=== PATIENT | male | born 1945 | race Caucasian/White ===

== ENCOUNTER 2017-11-13 08:37 | Day surgery (SDC) | payer MEDICARE ==
[~2017-11-13] VITALS: Ht 177.8 cm; Wt 57.3 kg
[~2017-11-13 08:37] MED LIST: ALBU.083IS IH; ALBU8HFA2 INH; AMARYL; ASPI81EC PO; BUDE6HFA; CEPH250A; CEPH500; CEPH500 PO; CIPRO500 MG PO; DILT120 PO; FINA5 PO; FLUSAL1005 INH; GABA100 PO; GLIP5 PO; GLUCOPHAGE; GUAI600T33 PO; Glucophage1000 MG PO; HYDACE5; HYDACE5 PO; METF500 PO; METO50ER PO; NAPR550 PO; PRAV20 PO; PRAVASTATIN SOD10 MG PO; SILD50TA PO; TIOT18 IH; ZESTORETIC 20-121 EA; [UNRECOGNIZED DRUG - REMARK]
== END 2017-11-13 10:41 | disposition home or self-care (01) ==
LOC: ORSCSDS 08:37
PROVIDERS: Ophthalmology
PROC: 08RK3JZ Replacement of Left Lens with Synthetic Substitute, Percutaneous Approach (ICD-10-PCS; principal; 2017-11-13 10:00)
DX: H25.12 Age-related nuclear cataract, left eye (principal); E11.36 Type 2 diabetes mellitus with diabetic cataract; J44.9 Chronic obstructive pulmonary disease, unspecified; I25.10 Atherosclerotic heart disease of native coronary artery without angina pectoris; Z79.82 Long term (current) use of aspirin; Z79.84 Long term (current) use of oral hypoglycemic drugs; Z79.899 Other long term (current) drug therapy; Z87.891 Personal history of nicotine dependence
CPT/HCPCS: 82947; J2250; J3010; J3301; J7040; V2632

== ENCOUNTER 2018-06-18 10:55 | Emergency (ER) | payer MEDICARE ==
[~2018-06-18] VITALS: Ht 177.8 cm; Wt 65.8 kg
[2018-06-18] MEDS ORDERED: Sm Double Ant28.4 GM TOP (11:40)
== END 2018-06-18 12:03 | disposition home or self-care (01) ==
LOC: ER 10:55
DX: T20.20XA Burn of second degree of head, face, and neck, unspecified site, initial encounter (principal); T31.0 Burns involving less than 10% of body surface; X08.8XXA Exposure to other specified smoke, fire and flames, initial encounter; Z79.899 Other long term (current) drug therapy; Z79.82 Long term (current) use of aspirin; Z79.84 Long term (current) use of oral hypoglycemic drugs; E11.9 Type 2 diabetes mellitus without complications; J44.9 Chronic obstructive pulmonary disease, unspecified; I10 Essential (primary) hypertension; F17.210 Nicotine dependence, cigarettes, uncomplicated; Z99.81 Dependence on supplemental oxygen

== ENCOUNTER 2018-07-29 13:33 | Emergency (ER) | payer MEDICARE ==
[~2018-07-29] VITALS: Ht 177.8 cm; Wt 57.6 kg
[~2018-07-29 13:33] MED LIST changes: +Sm Double Ant28.4 GM TOP; -ZESTORETIC 20-121 EA; +ZESTORETIC 20-121 EA PO
[2018-07-29 13:57] LABS: BASOPHILS ABSOLUTE AUTO 0.01 K/mm3 (0.00-0.23); BASOPHILS PERCENT AUTO 0 % (0-2); EOSINOPHILS PERCENT AUTO 0 % (0-6); Hematocrit 39.1 % (37.0-53.0); Hemoglobin 10.8 g/dL (13.5-17.5); IMMATURE GRAN ABSOLUTE AUTO 0.02 K/mm3 (0.00-0.10); IMMATURE GRAN PERCENT AUTO 0 % (0-1); LYMPHOCYTES PERCENT AUTO 7 % (21-46); MONOCYTES ABSOLUTE AUTO 0.73 K/mm3 (0.16-1.47); MONOCYTES PERCENT AUTO 10 % (4-13); Mean Corpuscular HGB 27.9 pg (26.0-34.0); Mean Corpuscular HGB Conc 27.6 g/dL (31.5-36.5); Mean Corpuscular Volume 101 fL (80-100); Mean Platelet Volume 10.2 fL (9.1-12.4); NEUTROPHILS ABSOLUTE AUTO 6.11 K/mm3 (1.96-9.15); NEUTROPHILS PERCENT AUTO 83 % (41-73); Platelet Count 211 K/mm3 (150-400); RDW Standard Deviation 51.8 fL (35.1-46.3); Red Blood Cell Count 3.87 M/mm3 (4.30-5.90); White Blood Cell Count 7.37 K/mm3 (4.00-11.30)
[2018-07-29] MEDS ORDERED: Ventolin5 MG/1 ML INH (14:10)
[2018-07-29] MEDS ORDERED: Mucinex600 MG PO (14:11)
[2018-07-29] MEDS ORDERED: GABA100 PO (14:12)
[2018-07-29] MEDS ORDERED: SILD50TA PO (14:12)
[2018-07-29 14:21] LABS: Albumin, Blood 3.6 g/dL (3.4-5.0); Albumin/Globulin Ratio 0.9 (0.8-1.8); Bilirubin, Total 0.4 mg/dL (0.1-1.0); Bun/Creatinine Ratio 28.7 (12.0-20.0); Creatinine, Blood 1.57 mg/dL (0.60-1.20); Globulin, Blood 3.9 g/dL (2.2-4.0); Potassium, Blood 4.6 mmol/L (3.5-5.5); Total Protein, Blood 7.5 g/dL (6.4-8.2); Troponin I 0.019 ng/mL (0.000-0.040)
[2018-07-30] MEDS ORDERED: POTA8 PO (17:32)
[2018-07-30] MEDS ORDERED: FURO20 PO (17:32)
== END 2018-07-29 15:24 | disposition home or self-care (01) ==
LOC: ER 13:33
PROVIDERS: Emergency Medicine
DX: J43.9 Emphysema, unspecified (principal); R09.02 Hypoxemia; E11.9 Type 2 diabetes mellitus without complications; I10 Essential (primary) hypertension; I25.10 Atherosclerotic heart disease of native coronary artery without angina pectoris; G47.33 Obstructive sleep apnea (adult) (pediatric); F17.210 Nicotine dependence, cigarettes, uncomplicated
CPT/HCPCS: 71046; 80053; 84484; 85025; 93005; 93010; 94640; 99284-25

== ENCOUNTER 2018-07-30 07:23 | Inpatient (IN) | payer MEDICARE ==
[~2018-07-30] VITALS: Ht 172.7 cm; Wt 54.2 kg
[~2018-07-30 07:23] MED LIST changes: +Mucinex600 MG PO; +Ventolin5 MG/1 ML INH
[2018-07-30 07:52] LABS: BASOPHILS ABSOLUTE AUTO 0.03 K/mm3 (0.00-0.23); BASOPHILS PERCENT AUTO 0 % (0-2); EOSINOPHILS PERCENT AUTO 0 % (0-6); Hematocrit 41.5 % (37.0-53.0); Hemoglobin 11.3 g/dL (13.5-17.5); IMMATURE GRAN ABSOLUTE AUTO 0.07 K/mm3 (0.00-0.10); IMMATURE GRAN PERCENT AUTO 1 % (0-1); LYMPHOCYTES ABSOLUTE AUTO 0.86 K/mm3 (0.84-5.20); LYMPHOCYTES PERCENT AUTO 9 % (21-46); MONOCYTES PERCENT AUTO 11 % (4-13); Mean Corpuscular HGB 27.4 pg (26.0-34.0); Mean Corpuscular HGB Conc 27.2 g/dL (31.5-36.5); Mean Corpuscular Volume 101 fL (80-100); Mean Platelet Volume 10.6 fL (9.1-12.4); NEUTROPHILS ABSOLUTE AUTO 7.32 K/mm3 (1.96-9.15); NEUTROPHILS PERCENT AUTO 79 % (41-73); NRBC ABSOLUTE 0.02 K/mm3 (0.00-0.02); NRBC Auto 0.2 /100 WBC (0.0-0.2); Platelet Count 191 K/mm3 (150-400); RDW Standard Deviation 51.8 fL (35.1-46.3); Red Blood Cell Count 4.12 M/mm3 (4.30-5.90); White Blood Cell Count 9.28 K/mm3 (4.00-11.30)
[2018-07-30 07:54] LABS: PO2 Arterial 78.8 mmHg (80-100)
[2018-07-30 07:55] LABS: pH Blood Arterial 7.13 (7.35-7.45)
[2018-07-30 07:57] LABS: PCO2 Arterial > 106 mmHg (35-45)
[2018-07-30 08:13] LABS: Albumin, Blood 3.6 g/dL (3.4-5.0); Albumin/Globulin Ratio 0.9 (0.8-1.8); Bilirubin, Total 0.3 mg/dL (0.1-1.0); Bun/Creatinine Ratio 29.1 (12.0-20.0); Calcium, Blood 8.7 mg/dL (8.5-10.1); Creatinine, Blood 1.79 mg/dL (0.60-1.20); Globulin, Blood 4.1 g/dL (2.2-4.0); Potassium, Blood 5.3 mmol/L (3.5-5.5); Total Protein, Blood 7.7 g/dL (6.4-8.2); Troponin I 0.126 ng/mL (0.000-0.040)
[2018-07-30 09:00] LABS: Base Excess Venous 13.4 mmol/L; Bicarbonate Venous 33.2 mmol/L (24.0-30.0); PO2 Venous 46.9 mmHg (38-42); pH Blood Venous 7.19 (7.34-7.37)
[2018-07-30 11:08] LABS: PO2 Arterial 83.5 mmHg (80-100); pH Blood Arterial 7.18 (7.35-7.45)
[2018-07-30 11:09] LABS: PCO2 Arterial > 106 mmHg (35-45)
--- NOTE | 2018-07-30 12:30 | NUR ---
ASSUMED CARE: PT BROUGHT FROM ED INTUBATED. AC 14/400/5/30%. AT BEDSIDE. PT WAS NOT SEDATED INITAILLY DUE TO HYPOTENSION. DR RAYMOND AWARE AND BOLUS OF NS ADMINISTERED. BP BEGAN TO NORMALIZE SO PROPOFOL STARTED INITIALLY AT 20MCG/MG/MIN. FAMILY AT BEDSIDE AND PT BECAME AGITATED, MOUTHED TO FAMILY HE WAS NOT COMFORTABLE. SEDATION INCREASED TO 25 MCG/KG/MIN. WITH THIS, PT APPEARS TO BE ASLEEP, NO LONGER SQUEEZING HANDS OR COMMUNICATING WITH FAMILY BUT APPEARS COMFORTABLE. DR RAYMOND AT BEDSIDE EXPLAINING PROGNOSIS TO PT'S . STATES THAT HE WANTS TO GIVE INTUBATION A FEW DAYS TO DETERMINE IF PT CAN BEGIN TO IMPROVE. [facility] PERFORMING ECHO. NO FURTHER NEEDS OR CONCERNS AT THIS TIME.
[2018-07-30 13:04] LABS: pH Blood Arterial 7.26 (7.35-7.45)
[2018-07-30 13:05] LABS: PCO2 Arterial 73.9 mmHg (35-45)
--- NOTE | 2018-07-30 13:52 | NUR ---
Echocardiogram completed.
--- NOTE | 2018-07-30 14:11 | NUR ---
Present with spouse, Lurdes, when pt brought to ICU. Lurdes was tearful and very afraid of "doing the wrong thing." She admits that Marisol has told her that he did not want heroic medical measures, but in the moment, she could not allow him to "go." Marisol has adult sons in [place] and [place]. Lurdes feels that if a life or decision needs to be made, it should be with Marisol's sons input/agreement. I stayed with Lurdes until things calmed down and Marisol was stabilized. They are non-adventism. But Lurdes responded well to gentle eligibility counselor and comfort. I will remain available.
--- NOTE | 2018-07-30 17:20 | NUR ---
This student nurse has permission to access patient's information.
[2018-07-30] MEDS ORDERED: FURO20 PO (17:32)
[2018-07-30] MEDS ORDERED: POTA8 PO (17:32)
--- NOTE | 2018-07-30 19:18 | NUR ---
SHIFT SUMMARY: PT REMAINS INTUBATED. SETTINGS AC 14/400/40/5. PROPOFOL AT 25MCG/KG/MIN. PUTTING OUT THICK, FORBES/YELLOW SECRETIONS. OG IN PLACE PUTTING OUT GREEN SECRETIONS. FIGUEROA IN PLACE WITH DARK YELLOW URINE. RESTRAINTS BILATERAL WRISTS. AT BEDSIDE. NO ACUTE NEEDS OR CONCERNS AT THIS TIME. PLAN IS TO KEEP INTUBATED FOR A FEW DAYS TO DETERMINE HOW PT PROGRESSES.
--- NOTE | 2018-07-30 20:00 | NUR ---
ASSUMED CARE OF PT AT 1915. REPORT RECEIVED. PT PRESENTS IN BED. VENTED - SETTINGS CHECKED AND VERIFIED. DRIPS ALSO VERIFIED. AT BEDSIDE. VERY ATTENTIVE TO PT'S NEEDS. PT IN NO APPARENT DISTRESS AT THIS TIME. WILL REVIEW CHART AND PLAN OF CARE FOR THIS PT.
--- NOTE | 2018-07-30 23:00 | NUR ---
FULL BEDBATH DONE FOR PT. HAVE INCREASED PROPOFOL TO 35 MCG'S FOR VENT TOLERANCE. PT IS ABLE TO OPEN EYES AND NOD HEAD 'YES' OR 'NO' TO QUESTIONS. DENIES GENERAL PAIN BUT DOES INDICATE THAT HE IS NOT TOLERATING THE ETT SO WITH INCREASE IN PROPOFOL MUCH BETTER TOLERANCE NOTED. BLOOD PRESSURES REMAIN WNL. WILL CONTINUE TO MONITOR PT.
--- NOTE | 2018-07-31 02:08 | NUR ---
PT CONTINUES ON VENT SETTINGS WHEREAS IS ABLE TO MAINTAIN SATURATIONS > 90 PERCENT. PT IN NO APPARENT DISTRESS. CONTINUING WITH 35 MCG'S PROPOFOL PER KG/ MIN. ROOMS IN. WILL CONTINUE TO MONITOR PT.
[2018-07-31 04:02] LABS: Hematocrit 29.4 % (37.0-53.0); Hemoglobin 8.7 g/dL (13.5-17.5); Mean Corpuscular HGB Conc 29.6 g/dL (31.5-36.5); Mean Platelet Volume 11.1 fL (9.1-12.4); NRBC ABSOLUTE 0.02 K/mm3 (0.00-0.02); NRBC Auto 0.3 /100 WBC (0.0-0.2); Platelet Count 168 K/mm3 (150-400); RDW Coefficient Variation 14.2 % (11.7-14.2); RDW Standard Deviation 48.7 fL (35.1-46.3); Red Blood Cell Count 3.11 M/mm3 (4.30-5.90); White Blood Cell Count 6.34 K/mm3 (4.00-11.30)
[2018-07-31 04:04] LABS: Mean Corpuscular Volume 95 fL (80-100)
[2018-07-31 04:22] LABS: Bun/Creatinine Ratio 30.1 (12.0-20.0); Calcium, Blood 8.2 mg/dL (8.5-10.1); Creatinine, Blood 1.76 mg/dL (0.60-1.20); Potassium, Blood 4.6 mmol/L (3.5-5.5); Troponin I 0.235 ng/mL (0.000-0.040)
[2018-07-31 04:50] LABS: BAND PERCENT MAN 18 % (0-8); BASOPHILS PERCENT MAN 0 % (0-2); EOSINOPHILS PERCENT MAN 0 % (0-6); LYMPHOCYTES ABSOLUTE MAN 0.57 K/mm3 (0.84-5.20); LYMPHOCYTES PERCENT MAN 9 % (21-46); MONOCYTES ABSOLUTE MAN 0.12 K/mm3 (0.16-1.47); MONOCYTES PERCENT MAN 2 % (4-13); NEUTROPHILS ABSOLUTE MAN 5.64 K/mm3 (1.96-9.15); SEG NEUTROPHILS PERCENT MAN 71 % (41-73); TOTAL CELLS COUNTED 100
--- NOTE | 2018-07-31 06:24 | NUR ---
PT CONTINUES TO TOLERATE VENT WELL WITH PROPOFOL AT 35 MCG/KG/MIN. HAS MAINTAINED > 90 PERCENT SATURATIONS WITH CURRENT VENT SETTINGS. WEAN TRIAL THIS AM REVEALS PT TAKING TIDAL VOLUMES OF 1000 ML AND RESPIRATORY RATES 5-6. PT WAS PLACED BACK TO AC SETTINGS SECONDARY TO THIS. PT CURRENTLY RESTING IN NO DISTRESS. WILL CONTINUE TO MONITOR PT, AND WILL REPORT OFF TO ONCOMING RN.
--- NOTE | 2018-07-31 09:55 | NUR ---
PT AWAKE ON 25MCG PROPOFOL. [facility]. PT DENIES C/O PAIN. PT TEARFUL, NODS HEAD TO BEING FEARFUL W ANXIETY. PROPOFOL INCREASED TO 45MCG; PT REMAINED AWAKE AND FEARFUL. VERSED 2MG IVP GIVEN. AT BEDSIDE. LUNGS VERY DIMINISHED T/O.
[2018-07-31 09:56] LABS: Percent Saturation 4.2 % (20.0-50.0)
--- NOTE | 2018-07-31 09:58 | NUR ---
DR FU IN TO SEE PT AT 0830, LABS ORDERED AND DRAWN
--- NOTE | 2018-07-31 10:51 | NUR ---
PT AWAKE ON 45MCG PROPOFOL. DENIES C/O PAIN. TEARFUL, NODS HEAD YES TO WANTING TO BE MORE SEDATED HE IS FEARFUL AND ANXIOUS. DR SWEENEY GIVEN UPDATE.
--- NOTE | 2018-07-31 12:56 | NUR ---
PT GIVEN ATIVAN 2MG IVP FOR ANXIETY. PROPOFOL DECREASED TO 45MCG. DR SWEENEY IN EARLIER TO SEE PT AND SPOKE W PT'S BROTHER.
[2018-07-31 14:32] LABS: Adenovirus Not Detected (NOT DETECT); Bordetella pertussis Not Detected (NOT DETECT); Chlamydophila pneumoniae Not Detected (NOT DETECT); Coronavirus 229E Not Detected (NOT DETECT); Coronavirus HKU1 Not Detected (NOT DETECT); Coronavirus NL63 Not Detected (NOT DETECT); Coronavirus OC43 Not Detected (NOT DETECT); Human Metapneumovirus Not Detected (NOT DETECT); Human Rhinovirus/Enterovirus Not Detected (NOT DETECT); Influenza A Not Detected (NOT DETECT); Influenza A/2009-H1 Not Detected (NOT DETECT); Influenza A/H1 Not Detected (NOT DETECT); Influenza A/H3 Not Detected (NOT DETECT); Influenza B Not Detected (NOT DETECT); Mycoplasma pneumoniae Not Detected (NOT DETECT); Parainfluenza Virus 1 Not Detected (NOT DETECT); Parainfluenza Virus 2 Not Detected (NOT DETECT); Parainfluenza Virus 3 Detected (NOT DETECT); Parainfluenza Virus 4 Not Detected (NOT DETECT); Respiratory Syncytial Virus Not Detected (NOT DETECT)
--- NOTE | 2018-07-31 15:01 | NUR ---
TUBE FEEDING STARTED AT 25CC/HR (PIVOT 1.5). DR SWEENEY NOTIFIED OF POS PCR RESULTS.
--- NOTE | 2018-07-31 15:44 | NUR ---
PALIATIVE CARE IN TO SEE PT'S FAMILY.
--- NOTE | 2018-07-31 16:03 | NUR ---
Clinical Visit: Pt is sedated and on vent. Spoke to Johnna, nurse. She reports that just left for the day a little bit ago. Pt is expected to come off the vent when he is ready. Family at bedside are concerned about renal and liver function. Apparently, the pt's sister in April of liver disease and they lost both of their parents to renal disease. Reviewed this with them. There are no restrictions on information and Johnna feels comfortable with me sharing that liver tests are normal and renal is slightly abnormal but expected to continue recovering as his urine output is really good today. This was relayed to the family, who expressed their relief. Will remain available.
--- NOTE | 2018-07-31 16:51 | NUR ---
Spriritual Care visit: Met with spouse, Lurdes, at bedside. She reports relief that "he is much more calm today." I am not sure she is aware that Marisol is now sedated. Regardless, Lurdes responded well to encouragement and affirmation of love. [employer] Special[employer] Supervisor services will remain available.
--- NOTE | 2018-07-31 19:22 | NUR ---
[place] of Care: Patient intubated, sedated, responds to painful stimuli, appears calm/comfortable when not stimulated. Propofol gtt at 45mcg/kg/min, NS infusing at 100ml/hr. Ventilator to AC 14/400/40/5, O2-94%, VSS. Mcclelland cath patent and intact, draining clear yellow urine. Peripheral IV's x3 patent and intact. TF per OG tube is Pivot 1.5c at 25ml/hr, will assess residual at approx 2000hr and advance to goal rate of 30ml/hr if no s/s of GI intolerance, 30ml H2O flush q4hr. Plan for spontaneous breathing trial in the morning. Will continue to monitor for pain, safety, comfort.
--- NOTE | 2018-07-31 20:18 | NUR ---
Tube Feed: TF residuals of 10ml at this time. TF rate increased from 25ml/hr to goal rate of 30ml/hr at this time. Will continue to assess residual q4hr.
[2018-08-01 03:36] LABS: Hematocrit 28.6 % (37.0-53.0); Hemoglobin 8.4 g/dL (13.5-17.5); Mean Corpuscular HGB 27.5 pg (26.0-34.0); Mean Corpuscular HGB Conc 29.4 g/dL (31.5-36.5); Mean Corpuscular Volume 94 fL (80-100); NRBC ABSOLUTE 0.02 K/mm3 (0.00-0.02); NRBC Auto 0.4 /100 WBC (0.0-0.2); Platelet Count 192 K/mm3 (150-400); RDW Coefficient Variation 14.4 % (11.7-14.2); RDW Standard Deviation 48.7 fL (35.1-46.3); Red Blood Cell Count 3.06 M/mm3 (4.30-5.90); White Blood Cell Count 5.21 K/mm3 (4.00-11.30)
[2018-08-01 03:59] LABS: Albumin, Blood 2.8 g/dL (3.4-5.0); Anion Gap 5 mmol/L (6-16); Blood Urea Nitrogen 55 mg/dL (8-24); CO2, Blood 33 mmol/L (21-32); Calcium, Blood 8.1 mg/dL (8.5-10.1); Chloride, Blood 105 mmol/L (98-108); Creatinine, Blood 1.62 mg/dL (0.60-1.20); Glomerular Filtration Rate 44 (60-); Glucose, Blood 224 mg/dL (70-99); Magnesium, Blood 2.1 mg/dL (1.6-2.4); Phosphorus, Blood 3.6 mg/dL (2.5-4.9); Potassium, Blood 3.7 mmol/L (3.5-5.5); Sodium, Blood 143 mmol/L (136-145)
[2018-08-01 04:19] LABS: BAND PERCENT MAN 17 % (0-8); BASOPHILS PERCENT MAN 0 % (0-2); EOSINOPHILS PERCENT MAN 0 % (0-6); LYMPHOCYTES ABSOLUTE MAN 0.31 K/mm3 (0.84-5.20); LYMPHOCYTES PERCENT MAN 6 % (21-46); MONOCYTES PERCENT MAN 2 % (4-13); NEUTROPHILS ABSOLUTE MAN 4.79 K/mm3 (1.96-9.15); SEG NEUTROPHILS PERCENT MAN 75 % (41-73); TOTAL CELLS COUNTED 100
[2018-08-01 05:26] LABS: PCO2 Arterial 64.8 mmHg (35-45); PO2 Arterial 81.7 mmHg (80-100); pH Blood Arterial 7.32 (7.35-7.45)
--- NOTE | 2018-08-01 06:30 | NUR ---
Shift Summary: Ventilator remains on AC-14/400/40/5 throughout shift. O2-91-96%, VSS. Tolerated spontaneous breathing trail without difficult, see RT documentation. Propofol gtt remained at 45mcg/kg/min, x2 doses of prn ativan given with good effect noted. TF increased to goal rate of 30ml/hr this shift, residuals 5-30ml, no s/s of GI intolerance. Peripheral IV's x3 remain patent and intact. Mcclelland cath patent and intact, draining clear yellow urine. Will continue to monitor until report to day shift RN.
--- NOTE | 2018-08-01 07:30 | NUR ---
Recieved report from [place]. Patient laying in bed with HOB at 30 degrees. He is intubated and sedated. He has 7.5 ET and is 24/25 at lips. His vent settings are AC 14, TV 400, FiO2 40% and PEEP 5.0 at 90% sats. He has OG in place with Pivot 1.5 infusing at 30ml/hr with 30ml water flush Q4 and has <30 ml residuals. He has 16Fr Temp king draining clear yellow urine in adequate amounts. He has 20 ga LFA dressing intact and site WNL infusing Propofol at 40 Mcg/kg/min. He has 20ga RW IV dressing intact and site WNL's and is flushed and SL. His third IV is 20gan upper RFA and dressing intact and site WNL's and is infusing NS at 100ml/hr. He is in bilateral soft wrist restraints and they were removed circulation and skin was checked and re-applied. He has bilateral SCD's in place.
--- NOTE | 2018-08-01 09:30 | NUR ---
Repositioned patient and did am care. meds pass through OG. No vent setting changes or drip changes. Family at bedside. Dr Dye has been by no new orders.
--- NOTE | 2018-08-01 11:36 | NUR ---
Patient extubated at 1130, Propofol tuned off at 1054 prior to ecxtubation and TF turned off. He is currently on 4L O2 via NC. Patient tolerating well. Will be placeing BIPAP in room incase does'nt tolerate. Dr Landon talked with son.
--- NOTE | 2018-08-01 13:29 | NUR ---
Patient placed on BIPAP at 1250 12/6 and is resting. He is very weak and had episode of sats dropping low 80's and has very poor cough. He has lots of family in room and they are leaving him to give him a break. He is currently in the mid to high 905"s on BIPAP. Restraints didcontinued just after 1130.
--- NOTE | 2018-08-01 15:30 | NUR ---
Patient taken off BIPAp and was able to answer questions and placed on 4L O2 via NC and sats mid to low 90%'s. VSS. Had him move extremities and was able to lift arms above head. Use is able to speak in single answeres but yet sttill looks very weak. Called ER and patient advocate about family asking about missing teeth he had in ER before on bed prior to coming to ICU.
--- NOTE | 2018-08-01 18:41 | NUR ---
Patient lightly resting in bed with 4L O2 awakens to verbal stimuli. He wears O2 in mourth as he is a mouth breather. Talked with Rt about placing back on BIPAP 03/06 soon to rest. All family has gone home. He remains very week.
--- NOTE | 2018-08-01 20:00 | NUR ---
ASSUMED CARE OF PT AT 1915. REPORT RECEIVED. PT PRESENTS IN BED. ALERT AND MOSTLY ORIENTED. ON 4 L/M O2 PER NASAL CANNULA. DISCUSSED WITH PT PLAN FOR THE NIGHT IS TO HAVE HIM WEAR BIPAP. PT ACKNOWLEDGES THIS. PT HAS GARBLED SPEECH PATTERN. IS ABLE TO MAKE HIMSELF UNDERSTOOD WITH SOME EFFORT. IN NO APPARENT DISTRESS. NO COMPLAINTS OF PAIN. WILL REVIEW CHART AND PLAN OF CARE FOR THIS PT.
--- NOTE | 2018-08-01 23:00 | NUR ---
PT HAS BEEN FORGETFUL WHERE HE IS, AND HAS PULLED AT HIS BIPAP MASK. NEEDS TO BE REORIENTED. HAS NO COMPLAINTS OF PAIN. MAINTAINS > 90 PERCENT SATURATIONS WHILE ON BIPAP. HAS TOLERATED Q 2 HOUR TURNS IN BED. WILL CONTINUE TO MONITOR.
--- NOTE | 2018-08-02 03:00 | NUR ---
PT'S COMES IN TO SEE PATIENT AND HAS LEFT FOR THE NIGHT. ALLOWED PT OFF BIPAP MASK AND ON OXYGEN AT 4 L/M PER NASAL CANNULA. PT AGAIN IS ABLE TO MAINTAIN > 90 PERCENT SATURATIONS WHILE ON CANNULA. HAVE DONE Q 4 HOUR ORAL CARE, AND Q 2 HOUR TURNS. PT IN NO DISTRESS AT THIS TIME. DOES HAVE INCREASE IN RESPIRATORY RATE. WILL CONTINUE TO MONITOR PT.
[2018-08-02 03:15] LABS: Hematocrit 34.5 % (37.0-53.0); Hemoglobin 9.6 g/dL (13.5-17.5); Mean Corpuscular HGB 27.5 pg (26.0-34.0); Mean Corpuscular HGB Conc 27.8 g/dL (31.5-36.5); Mean Platelet Volume 11.2 fL (9.1-12.4); NRBC ABSOLUTE 0.02 K/mm3 (0.00-0.02); NRBC Auto 0.2 /100 WBC (0.0-0.2); Platelet Count 247 K/mm3 (150-400); RDW Coefficient Variation 14.5 % (11.7-14.2); RDW Standard Deviation 52.3 fL (35.1-46.3); Red Blood Cell Count 3.49 M/mm3 (4.30-5.90); White Blood Cell Count 9.68 K/mm3 (4.00-11.30)
[2018-08-02 03:21] LABS: Mean Corpuscular Volume 99 fL (80-100)
[2018-08-02 03:34] LABS: Bilirubin, Total 0.4 mg/dL (0.1-1.0); Bun/Creatinine Ratio 35.7 (12.0-20.0); Calcium, Blood 8.3 mg/dL (8.5-10.1); Creatinine, Blood 1.57 mg/dL (0.60-1.20); Phosphorus, Blood 5.3 mg/dL (2.5-4.9); Potassium, Blood 4.5 mmol/L (3.5-5.5)
[2018-08-02 03:46] LABS: BAND PERCENT MAN 3 % (0-8); BASOPHILS PERCENT MAN 0 % (0-2); EOSINOPHILS PERCENT MAN 0 % (0-6); LYMPHOCYTES ABSOLUTE MAN 0.09 K/mm3 (0.84-5.20); LYMPHOCYTES PERCENT MAN 1 % (21-46); MONOCYTES ABSOLUTE MAN 0.09 K/mm3 (0.16-1.47); MONOCYTES PERCENT MAN 1 % (4-13); NEUTROPHILS ABSOLUTE MAN 9.48 K/mm3 (1.96-9.15); SEG NEUTROPHILS PERCENT MAN 95 % (41-73); TOTAL CELLS COUNTED 100
[2018-08-02 05:28] LABS: PCO2 Arterial 57.6 mmHg (35-45); PO2 Arterial 63.1 mmHg (80-100); pH Blood Arterial 7.34 (7.35-7.45)
--- NOTE | 2018-08-02 06:30 | NUR ---
PT WAS NOTED TO BE TRYING TO BITE AT HIS SALINE LOCK. STATED HE WAS TRYING TO GET A DRINK OF WATER. REORIENTED PT. CLAIMS HE WAS IN [place] ON [facility]. INFORMED PT THAT HE WAS AT HOSPITAL HERE AT [facility]. PT CURRENTLY ON 4 L/M O2 PER NASAL CANNULA. PT HAS WORN BIPAP FOR MOST OF THE NIGHT. WILL CONTINUE TO MONITOR PT, AND WILL REPORT OFF TO ONCOMING RN.
--- NOTE | 2018-08-02 07:15 | NUR ---
RECEIVED REPORT FROM DENEEN CONTE, AND ASSUMED CARE OF PT.
--- NOTE | 2018-08-02 08:45 | NUR ---
DR. FU AT BEDSIDE FOR EVALUATION. NEW ORDERS PROVIDED.
--- NOTE | 2018-08-02 10:10 | NUR ---
PHYSICAL THERAPY AT BEDSIDE FOR EVALUATION AND TREATMENT.
--- NOTE | 2018-08-02 10:30 | NUR ---
MEDICATED WITH HYDRALAZINE IV FOR SBP'S IN THE 170'S AND 180'S. SBP CAME DOWN TO 140'S AND 150'S.
--- NOTE | 2018-08-02 14:04 | NUR ---
NURSING SUMMARY MILDLY CONFUSED, FOLLOWS COMMANDS, DENIES PAIN. LUNGS DIMINISHED THROUGHOUT WITH WHEEZING IN BASES, ON 4L O2 NC, SATS REMAINING 88-93%, USED BIPAP DURING THE NIGHT, DYSPNEIC ON EXERTION, DESATS TO 81% AND INCREASES WITH REST. NSR - ST - SINUS ARRHYTHMIA, HR 90'S - 110'S, INCREASES TO 130'S WITH EXERTION, HYPERTENSIVE, SBP 170'S AND 180'S, GAVE HYDRALAZINE 10 MG IVP, REDUCES SBP TO 150'S. ABDOMEN DISTENDED, SOFT, BS X 4 QUADS, STARTED CARDIAC DIET, POOR APPETITE, SWALLOW EVALUATION DONE, REQUIRES FEEDING ASSISTANCE. BLOOD SUGARS AC&HS, LUNCH CBG = 105, NO COVERAGE REQUIRED. DISCONTINUED FIGUEROA AT 1355, AWAITING FIRST VOID, URINAL AT BEDSIDE. SKIN DRY, FRAGILE, INTACT. 2 PERSON MAX ASSIST TO GET PT OUT OF BED INTO THE BEDSIDE CHAIR, ONCE IN CHAIR, TOLERATING WELL. RFA 20G, RAC 20G, AND LFA 20G IV SITES. DISCONTINUED THE NS AT 100 ML/HR AND ENCOURAGING INCREASED PO INTAKE. PT WORKED WITH PHYSICAL THERAPY TODAY.
--- NOTE | 2018-08-02 20:33 | NUR ---
ASSUMED CARE OF PT AT 1915. REPORT RECEIVED. PT PRESENTS SITTING UPRIGHT IN RECLINER CHAIR. PT DOES USE HIS CALL LIGHT TO ASK FOR ASSIST TO BEDSIDE COMMODE TO ATTEMPT TO URINATE. ONE PERSON MAX ASSIST TO STAND AND PIVOT TRANSFER TO COMMODE. PT DOES SHUFFLE FEET SOME AND NEEDS COACHING. PT VOIDS Q.S. AFTER THIS WITH SECOND PERSON ASSIST RETURNED PT TO BED. PT STILL BELIEVES THAT HE IS IN [place]. REORIENTED PT TO WHERE HE IS AT THIS TIME. PT HAS MOIST NONPRODUCTIVE COUGH. OXYGEN ON A 4 LITERS WHICH HAS SINCE BEEN BROUGHT DOWN TO 2.5 LITERS. PT MAINTAINS SATURATIONS > 90 PERCENT WITH THIS. FAMILY ARRIVES TO ROOM AND IS CURRENTLY VISITING WITH PT. THEY HAVE HAD QUESTIONS AND CONCERNS. ADDRESSED THOSE FOR FAMILY. WILL REVIEW CHART AND PLAN OF CARE FOR THIS PT.
--- NOTE | 2018-08-02 23:00 | NUR ---
HAVE NOTED PT'S MENTATION HAS BEEN IMPROVED THIS NIGHT THAN PREVIOUS EVENING THIS RN WAS IN CARE. HAVE PLACED PT TO BIPAP AND HE IS TOLERATING THIS WELL TO FAIR. PT DOES STATE THAT HE DOES PREFER TO WEAR ONLY NASAL CANNULA. DID DISCUSS WITH PT RATIONALE FOR WEARING BIPAP. PT ACKNOWLEDGES. WILL CONTINUE TO MONITOR PT.
--- NOTE | 2018-08-03 03:17 | NUR ---
PT CONTINUES TO BE COMPLIANT ABOUT WEARING BIPAP MASK. HAS MAINTAINED > 90 PERCENT SATURATIONS WITH CURRENT SETTINGS. PT HAS BEEN ABLE TO VOID QS. NEEDS SOME ASSIST WITH URINAL. PT VOICES NO COMPLAINTS AT THIS TIME. WILL CONTINUE TO MONITOR PT.
[2018-08-03 03:36] LABS: BASOPHILS ABSOLUTE AUTO 0.01 K/mm3 (0.00-0.23); BASOPHILS PERCENT AUTO 0 % (0-2); EOSINOPHILS PERCENT AUTO 0 % (0-6); Hemoglobin 10.3 g/dL (13.5-17.5); IMMATURE GRAN ABSOLUTE AUTO 0.07 K/mm3 (0.00-0.10); IMMATURE GRAN PERCENT AUTO 1 % (0-1); LYMPHOCYTES ABSOLUTE AUTO 0.39 K/mm3 (0.84-5.20); LYMPHOCYTES PERCENT AUTO 4 % (21-46); MONOCYTES ABSOLUTE AUTO 0.25 K/mm3 (0.16-1.47); MONOCYTES PERCENT AUTO 3 % (4-13); Mean Corpuscular HGB 27.5 pg (26.0-34.0); Mean Corpuscular HGB Conc 27.8 g/dL (31.5-36.5); Mean Corpuscular Volume 99 fL (80-100); Mean Platelet Volume 10.4 fL (9.1-12.4); NEUTROPHILS ABSOLUTE AUTO 8.62 K/mm3 (1.96-9.15); NEUTROPHILS PERCENT AUTO 92 % (41-73); NRBC ABSOLUTE 0.03 K/mm3 (0.00-0.02); NRBC Auto 0.3 /100 WBC (0.0-0.2); Platelet Count 263 K/mm3 (150-400); RDW Coefficient Variation 14.4 % (11.7-14.2); RDW Standard Deviation 51.7 fL (35.1-46.3); Red Blood Cell Count 3.75 M/mm3 (4.30-5.90); White Blood Cell Count 9.34 K/mm3 (4.00-11.30)
[2018-08-03 03:56] LABS: Anion Gap 7 mmol/L (6-16); Blood Urea Nitrogen 60 mg/dL (8-24); Bun/Creatinine Ratio 39.7 (12.0-20.0); CO2, Blood 31 mmol/L (21-32); Calcium, Blood 8.6 mg/dL (8.5-10.1); Chloride, Blood 107 mmol/L (98-108); Creatinine, Blood 1.51 mg/dL (0.60-1.20); Glomerular Filtration Rate 48 (60-); Glucose, Blood 122 mg/dL (70-99); Phosphorus, Blood 4.7 mg/dL (2.5-4.9); Potassium, Blood 4.7 mmol/L (3.5-5.5); Sodium, Blood 145 mmol/L (136-145)
--- NOTE | 2018-08-03 05:58 | NUR ---
PT HAS BEEN ABLE TO REST THIS NIGHT. HAS WORN BIPAP MASK FOR MOST OF THE NIGHT. HAVE SWITCHED PT BACK TO 4 L/M OXYGEN PER NASAL CANNULA. PT HAS MOIST COUGH BUT HAS NOT BEEN ABLE TO EXPECTORATE SPUTUM. DENIES COMPLAINTS OF PAIN OR DYSPNEA. HAS TOLERATED Q 2 HOUR TURNS IN BED. VOIDED QS. WILL CONTINUE TO MONITOR PT, AND WILL REPORT OFF TO ONCOMING RN.
--- NOTE | 2018-08-03 07:19 | NUR ---
ASSUMED CARE: RECEIVED REPORT FROM NOC RN. NO DISTRESS NOTED AT THIS TIME. PT APPEARS TO BE SLEEPING WITH EVEN CHEST RISE AND FALL. WILL ASSESS FURTHER AND CONTINUE TO MONITOR.
--- NOTE | 2018-08-03 17:44 | NUR ---
SHIFT SUMMARY: NO ACUTE CHANGES NOTED TO PT CONDITION. PT HAS BEEN UP TO THE CHAIR SINCE SHORTLY AFTER BREAKFAST AFTER RECEIVING A BEDBATH. SOME DIFFICULTY WITH TRANSFERING PT NEEDS TO HAVE BELT AND TWO PERSON ASSIST TO TRANSFER D/T HAVING DIFFICULTY STANDING STREIGHT UP. O2 SATURATIONS HAVE REMAINED >92% ON 4L NC DESATING ONLY WITH EXERTION. PT IS ABLE TO STATE PERSON, PLACE AND YEAR THIS AFTERNOON, BUT REMAINS VERY SLOW TO RESPOND. VSS T/O THE DAY WILL CONTINUE TO MONITOR AND REPORT TO NOC RN. CALL LIGHT IN REACH. BED IN LOWEST POSSITION AND CHAIR LOCKED IN POSSITION.
--- NOTE | 2018-08-03 20:42 | NUR ---
PATIENT TRANSFER TO BED WITH MOD ASSIST AND COACHING. PATIENT A&O X3, FOLLOWING DIRECTIONS WELL. HX OF BEING FORGETFUL. PATIENT SOB WITH ACTIVITY RECOVERING WELL. ON 4L/NC MOIST NONPRODUCTIVE COUGH. LUNG SOUNDS DECREASED T/O.
[2018-08-04 03:23] LABS: Hemoglobin 10.2 g/dL (13.5-17.5); Mean Corpuscular HGB 27.5 pg (26.0-34.0); Mean Corpuscular HGB Conc 27.6 g/dL (31.5-36.5); Mean Corpuscular Volume 100 fL (80-100); Mean Platelet Volume 10.4 fL (9.1-12.4); NRBC ABSOLUTE 0.03 K/mm3 (0.00-0.02); NRBC Auto 0.3 /100 WBC (0.0-0.2); Platelet Count 258 K/mm3 (150-400); RDW Coefficient Variation 14.4 % (11.7-14.2); RDW Standard Deviation 52.8 fL (35.1-46.3); Red Blood Cell Count 3.71 M/mm3 (4.30-5.90); White Blood Cell Count 8.98 K/mm3 (4.00-11.30)
[2018-08-04 03:44] LABS: Albumin, Blood 3.2 g/dL (3.4-5.0); Bilirubin, Total 0.3 mg/dL (0.1-1.0); Bun/Creatinine Ratio 45.8 (12.0-20.0); Calcium, Blood 8.6 mg/dL (8.5-10.1); Creatinine, Blood 1.42 mg/dL (0.60-1.20); Globulin, Blood 3.1 g/dL (2.2-4.0); Potassium, Blood 5.2 mmol/L (3.5-5.5); Total Protein, Blood 6.3 g/dL (6.4-8.2)
--- NOTE | 2018-08-04 05:28 | NUR ---
PATIENT TRANSFERRED TO PCU 10 VIA BED WITH 4L/NC. PATIENT ON AND OFF BIPAP T/O NIGHT. MOIST NONPRODUCTIVE COUGH CONTINUES. USING CALL LIGHT APPROPRIATELY T/O NIGHT.
--- NOTE | 2018-08-04 06:22 | NUR ---
END OF SHIFT SUMMARY ASSUMED CARE OF PT FROM ICU 0531. PT TO ROOM WITH 4L NC, PT SLID TO NEXT BED. 3 20G IV'S, SALINE LOCKED IN PLACE. PT SPO2 90%. PT BIPAP TO ROOM SHORTLY AFTER WITH RT. PT PLACED ON IT. SETTINGS: /6, FIO2 35%. LUNG SOUNDS DIM, CLEAR. PT ORIENTED TO ROOM. PT WATCHING TV AT THIS TIME STATING NO CONCERNS.
--- NOTE | 2018-08-04 17:45 | NUR ---
evening note PT ALERT AND COMFORTABLE. PT WAS ABLE TO TAKE A BREAK FROM THE BIPA FROM LUNCH UNTIL 1500. HE THEN STARTED TO DESAT. REAPPLIED BIPAP UNTIL DINNER TIME. PT EATING WELL. HE REALLY LIKES STRAWBERRY ENSURE. TALKED WITH PAYROLL ASSISTANT TO ADD TO TRAY EVEN THOUGH HE IS DIABETIC. HIS INTAKE IS SO POOR THAT SHE FELT THAT IT WOULD BE OK. VSS. PT HAD AN EPISODE OF AFIB THIS MORNING DURING BREAKFAST. HR WAS UP TO [address] TELLEZ ORDER. PT CONVERTED WHEN PLACED BACK ON BIPAP. NO FURTHER AFIB EPISODES TODAY. FAMILY IN AND OUT. STARTED ON METOPROLOL PER DR TELLEZ ORDER. PT TOLERATING SO FAR. SR/ST. CONTINUE POT.
--- NOTE | 2018-08-04 21:49 | NUR ---
ASSUME CARE - PCU (NOC SHIFT) PATIENT ALERT AND ORIENTED TO SELF, LOCATION AND SITUATION. PATIENT ON BIPAP, LUNG SOUNDS DIM T/O. PATIENT PROVIDED ORAL CARE (WITH MOUTH WASH) - DENTURES ARE IN HIS MOUTH AND HE REFUSED TO HAVE THEM OUT. PATIENT DENIES ANY NEEDS OR PAIN AT THIS TIME. ANASARCA/SWELLING NOTED 1-2 + ON ABD AND EXTREMETIES. VSS. PATIENT BIPAP DEPENDANT THUS FAR T/O SHIFT. CALL LIGHT W/I REACH. WILL CONTINUE TO MONITOR. PATIENT [id number] IN NSR IN THE 70'S PER [employer].
--- NOTE | 2018-08-05 05:37 | NUR ---
PCU NOC SHIFT SUMMARY PATIENT ALERT AND ORIENTED X4 - SLOW TO RESPOND AT TIMES. PATIENT BEDBOUND, VERY DECONDITIONED YET IMPROVING FROM EXTUBATION. PATIENT ENCOURAGED TO COUGH AND DEEP BREATH T/O SHIFT. PATIENT REMAINED ON BIPAP FOR MAJORITY OF SHIFT AT 12/6 AND FIO2 OF 35% WITH BREAKS GIVEN ON NC. PATIENT WEARS HOME OXYGEN AT 2.5 LPM AT THIS TIME. PATIENT REMAIN IN NSR T/O SHIFT W/ RATE IN THE 70'S. NO ACUTE CHANGES OR EVENTS T/O SHIFT. CALL LIGHT W/I REACH, PATIENT DENIES NEEDS AT THIS TIME. WILL CONTINUE TO MONITOR AND GIVE REPORT TO NOC SHIFT RN.
[2018-08-05 08:12] LABS: Bun/Creatinine Ratio 43.4 (12.0-20.0); Creatinine, Blood 1.52 mg/dL (0.60-1.20); Potassium, Blood 5.6 mmol/L (3.5-5.5)
--- NOTE | 2018-08-05 13:20 | NUR ---
Assumed care of pt at approx 0710. Pt on BIPAP with settings /6 at 35% FIo2. VSS. No apparent sign of distress. Pt off BIPAP at approx 0800 for breakfast. Pt ambulated to chair for breakfast and transitioned to 5L NC. Pt able to titrate o2 down to 2.5 L and tolerate with sats >95 %. Pt worked with physical therapy, occupational therapy, insentive spirometer and flutter valve. Pt HAGEN and oxygen titrated up to 4L via NC. Pt transferred back to bed and maintaining saturations >95% on 4L. A&Ox4, calls appropriately, family at bedside intermittantly this morning. Bed locked in lowest position. See shift assessment for detailed assessment. Will continue to monitor and update as apporpriate.
--- NOTE | 2018-08-05 16:50 | NUR ---
Shift Summary No acute changes this shift. Pt active this shift, worked with PT and OT, transferred from bed to chair this morning, and used incentive spirometer and flutter valve to facilitate air movement in lower lobes. Pt continues to present with general weakness. Pt with occasional harsh, hacky cough post ambulation and PT/OT work. Pt unable to cough out sputum but educated to do so if able to Pt family at bedside on and off throughout shift. Pt calls appropriately, voids with urinal in bed. Pt maintaining o2 >90% on 4L via NC with occasional dips in the mid to high 80's. When pt dips to mid 80's, he is able to recover within a minute with instruction to breathe through nose. Pt states he is interested in hospice. Palliative care consulted and aware of pt desire. Pt is still currently a FULL CODE. Will continue to monitor and update as appropriate.
--- NOTE | 2018-08-05 20:30 | NUR ---
PATIENT LETHARGIC/PERIODS OF APNEA PATIENT DESATURATED DOWN TO 68% ON 6 LPM NC - PATIENT ENCOURAGED TO DEEP BREATH AND COUGH - PATIENT REPORTS THAT HE IS VERY TIRED AND UNABLE TO KEEP UP WITH HIS RESPIRATORY EFFORT. PATIENT HAS BEEN PLACED ON VENTI MASK AT 50% AND HIS SATURATION IS 90% - DISCUSSED WITH PALLIATIVE CARE TEAM AND RESPIRATORY THERAPIST (RT). RT SUGGEST THAT WE PLACE PATIENT BACK ON BIPAP AND PALLIATIVE CARE NURSE LON STATED THAT FAMILY AT PATIENT BELIEVE THAT THEY WANT TO CONTINUE WITH FULL CARE AND NOT HOSPICE DUE TO THE PATIENT GETTING BETTER. WILL ADDRESS GETTING ORDERS FOR NEW ABG AND XRAY WITH PROVIDER.
--- NOTE | 2018-08-05 20:48 | NUR ---
SPOKE WITH PROVIDER S[facility] NEW ORDERS GIVEN FOR ABG NOW AND BIPAP/CPAP PROTOCOL. RESPIRTORY CARE NOTIFIED.
[2018-08-05 20:58] LABS: PO2 Arterial 73.5 mmHg (80-100)
[2018-08-05 20:59] LABS: PCO2 Arterial 85.3 mmHg (35-45); pH Blood Arterial 7.26 (7.35-7.45)
--- NOTE | 2018-08-05 21:25 | NUR ---
[facility]IT[facility] NOT[facility] - REPEAT AT 0100
[2018-08-06 01:03] LABS: PO2 Arterial 63.4 mmHg (80-100)
[2018-08-06 01:04] LABS: PCO2 Arterial 77.6 mmHg (35-45); pH Blood Arterial 7.29 (7.35-7.45)
[2018-08-06 04:33] LABS: Bun/Creatinine Ratio 43.6 (12.0-20.0); Calcium, Blood 9.1 mg/dL (8.5-10.1); Creatinine, Blood 1.49 mg/dL (0.60-1.20); Potassium, Blood 5.3 mmol/L (3.5-5.5)
[2018-08-06 05:13] LABS: PCO2 Arterial 69.6 mmHg (35-45); PO2 Arterial 66.3 mmHg (80-100); pH Blood Arterial 7.34 (7.35-7.45)
--- NOTE | 2018-08-06 06:02 | NUR ---
PCU NOC SHIFT SUMMARY PATIENT ALERT AND ORIENTED TO SELF, LOCATION AND SITUATION. PATIENT DENIES PAIN T/O SHIFT. PATIENT HAS REMAINED ON BIPAP SINCE ORDERS GIVEN - ABG'S HAVE IMPROVED. PATIENT IN NSR T/O SHIFT WITH VSS ON BIPAP WITH FIO2 AT 40%. CALL LIGHT W/I REACH. WILL CONTINUE TO MONITOR AND GIVE REPORT TO DAYSHIFT RN. PATIENT DENIES ANY NEEDS AT THIS TIME.
--- NOTE | 2018-08-06 17:17 | NUR ---
Assumed care of pt this morning, at that time pt on BIPAP with settings 16/6 at 35%. Pt with oxygen sats >90% at that time. BIPAP removed from pt per Dr. De La Cruz while Dr. De La Cruz was in assessing pt this morning. Pt placed on NC at 6L and has remained at 6L throughout shift with no signs of respriatory distress, no changes in mentation or orientation, o2 sats >90%, and pt without complaints this shift. This RN is monitoring s/sx and asking pt verbally for need of BIPAP. Pt with occasional, harsh but weak, cough. Pt with poor/weak respiratory effort. Little air movement heard in bilat lower lobes. Educated pt on incentive spirometer and flutter valve and pt expresses moderate motivation to use respiratory aids. No acute changes this shift. Pt remains resting comfortably in bed, answers questions appropriately, uses call light, makes needs known. family and friends at bedside intermit. throughout shift. Pt appears more content today than yesterday. Will continue to monitor and update until report given to [facility] nurse.
--- NOTE | 2018-08-06 19:45 | NUR ---
Review of patient needs and prognosis with rn orthopedic, nursing and physical therapy. Visit with patient after dinner. Pt alert but fatigued. States he doesn not have much of a headache today but frequently has headaches. no ringining in ears but states it is intermitant from heaing injury. Swallow and cough are moderate to weak. no nausea brething feels a little less tight today. pt having a better day. His main complaint is his back and joints ache and stiffness. He denies pain but if you use other words he will repond. Pt stated widhed he could massage out the back tightness. Offered pt a back rub and some positioning. he was able to turn left to righ with assistance and great effort minimal back rub was comforting but very tender to shoulders. pt has sme small bruising to ribs no breakdown noted but great risk . Pt very fatigued after back rub. Some coughing faciltated sputem productiona dnhelp with chest wall movement. Ability to vintilate is very poor. minimal movement of legs. pt positioned for comfort and tv put on. Updated nursing on symptoms and suggested some low dose tylenol. Hope is pt will be able to sleep tonight. Intent was to review plan of care and code status and polst. Pt needed theraputic visit. Will follow up with . KPS score is 30%. Will see how he tolerates PT
--- NOTE | 2018-08-06 22:31 | NUR ---
PM NOTE. ASSUMED CARE OF PT APROX 1900, PT IS A&O, PT WAS ADMITTED DUE TO HYPOXIA. PT IS CURRENTLY ON 4L NC WITH O2 SATS AT 90%. PT DESATS VERY QUICKLY WITH ANY TYPE OF MOVMENT AND RECOVERS SLOWLY. TELE INTACT, NSR IN THE 60'S PER UPHOLSTERY MECHANIC. PT'S BP 154/69. PT HAS 2+ EDEMA TO HIS BL ANKELS/PEDAL AREA OF HIS FEET. PT ALSO HAS GENERALIZED EDEMA TO HIS UPPER ARMS. L/S DIM AND COARSE T/O. BT PRESENT AND HYPOACTIVE, ABD IS SOFT AND NONTENDER TO PALP. CALL LIGHT IN REACH, BED IS LOCKED AND LOW WILL CONTINUE TO MONITOR.
--- NOTE | 2018-08-07 05:53 | NUR ---
SHIFT SUMMARY. NO ACUTE CHANGES THIS SHIFT. PT'S VS HAVE BEEN STABLE. PT HAS NOT SLEPT MUCH THIS SHIFT. PT HAS BEEN ABLE TO TURN HIMESELF IN BED. NO CARDIAC EVENTS ON TELE. CALL LIGHT IN REACH, BED IS LOCKED AND LOW WILL CONTINUE TO MONITOR UNTIL REPORT IS GIVEN TO ONCOMING RN.
--- NOTE | 2018-08-07 15:19 | NUR ---
Therapeutic visit today. Pt resting in bed upon arrival with family at bedside. Pt denies pain at this time. Pt reports dyspnea and states the oxygen is helping. Pt attempts to cough secretions but cough appears to be weak. Encouraged Pt and family to discuss any concerns and ask questions. Pt and family report no concerns at this time. Palliative Care will remain available.
--- NOTE | 2018-08-07 18:29 | NUR ---
No acute changes noted this shift. Pt remain a&ox4. Pt took nap today for approx 1.5 hours on NC maintaining saturations between 88-91%. Pt with occasional desaturations noted down to 78%. Dr. Muller notifed. Pt recovers within 5 minutes of guided deep breathing. Pt remains on 4-6L NC. Pt voids with urinal and up to bsc for bm. PT and OT in today with pt. PT would like pt to ambulate to bathroom. Pt refused to ambulate to bathroom today and requested bsc. ABX continued this shift. Pt with some exp wheezes noted. pt breathing overall e/u this shift. Pt remains weak resp effort but slightly improved from last shift. Pt remains very HAGEN. Pt states he does not want hospice care. Pt states he was confusing hospice care with home health. Pt states that he wants care at home, but not hospice. Palliative care notifed. Dr. Muller and Dr. De La Cruz notified. Will continue to monitor and update as appropriate.
--- NOTE | 2018-08-07 19:55 | NUR ---
PM NOTE. ASSUMED CARE OF PT APROX 1900, PT IS A&O ABLE TO STATE HE WAS IN THE HOSPTIAL, GENERAL DATE AND WHO THE PRESIDENT WAS. PT WAS ADMITTED FOR HYPOXIA/RESP FAILURE. PT IS CURRENTLY ON 3L NC, HIS HOME DOSE IS 2.5, WILL CONTINUE TO TITRATE PT IS ABLE TO TOLERATE. PT'S COLOR AND DEMENOR HAVE IMPROVED FROM PREVIOUS SHIFT. TELE INTACT, NSR IN THE 70'S PER DIE REPAIRER STAMPING, PT'S BP 151/68, PT HAS 1+ EDEMA TO HIS BILAT ANKELS AND TRACE EDEMA TO HIS BLUES. THIS IS AN IMPROVMENT FROM PREVIOUS SHIFT. PT'S L/S DIM T/O, PT IS ON 3L NC, RR AT THIS TIME IS 12 EVEN AND UNLABORED. BT PRESENT AND HYPOACTIVE, ABD IS SOFT AND NONTENDER TO PALP. PT IS ABLE TO MOVE HIMSELF AROUND IN THE BED PRN. WILL CONTINUE TO MONTIOR.
--- NOTE | 2018-08-08 06:33 | NUR ---
SHIFT SUMMARY. NO ACUTE CHANGES NOTED THIS SHIFT. PT DENIES ANY CHEST PAIN/PRESSURE, N/V OR ABNORMAL SOB. PT HAS SAT AT THE SIDE OF THE BED TO USE THE URINAL AND IS ABLE TO TURN SELF IN BED. PT HAS NOT SLEPT WELL THIS SHIFT. HIS VS HAVE BEEN STABLE. PT WAS HYPERTENSIVE ONCE DURING THIS SHIFT AND WAS MEDICATED PER EMAR WITH GOOD RESULTS. PT WAS ON THE BIPAP FOR APROX 30MINS BEFORE HE REQUESTED IT TO BE REMOVED. PT'S RESPIRATORY EFFORT AND COUGH ARE STILL VERY WEAK BUT SLIGHTLY IMPROVED. CALL LIGHT IN REACH, BED IS LOCKED AND LOW WILL CONTINUE TO MONITOR UNTIL REPORT IS GIVEN TO ONCOMING RN.
--- NOTE | 2018-08-08 07:30 | NUR ---
INITIAL ASSESSMENT: PT SITTING UP ON THE EDGE OF THE BED FACING THE WINDOW. PT IS AWAKE, ALERT AND OX3. PT DENIES PAIN AT THIS TIME. HRR. LS DIM T/O WITH INSP/EXP WHEEZING, COARSE T/O. PT HAS WEAK COARSE NPC. PT ENCOURAGED TO USE THE FLUTTER AT BEDSIDE Q1 WA. BIOX WNL ON 4L VIA NC. BT+, NON-TENDER TO LIGHT PALPATION. PPP. VSS. SON AT BEDSIDE. AM MEDS GIVEN, PT WAS ABLE TO SWALLOW THEM WHOLE WITH WATER WITHOUT DIFFICULTY. PT DENIES FURHTER NEEDS AT THIS TIME, CALL LIGHT IN REACH. WILL CONTINUE TO MONITOR.
--- NOTE | 2018-08-08 11:51 | NUR ---
ASSESSMENT: PT IS STILL SITTING UP ON THE EDGE OF THE BED. SON AND HAVE LEFT AT THIS TIME. SEVERAL ATTEMPTS WERE MADE TO CONTACT PALLIATIVE CARE SO THEY COULD MEET WITH THE FAMILY, NO ONE WAS ABLE TO TALK WITH THE FAMILY. VSS. PT DENIES OTHER NEEDS AT THIS TIME, CALL LIGHT IN REACH. WILL CONTINUE TO MONITOR.
--- NOTE | 2018-08-08 16:18 | NUR ---
INITIAL ASSESSMENT UNCHAGED. VSS. PT A LITTLE HIGH, HYDRALAZINE GIVEN, WILL REASSESS. PT DENIES NEEDS AT THIS TIME, CALL LIGHT IN REACH. WILL CONITNUE TO MONITOR.
--- NOTE | 2018-08-08 18:31 | NUR ---
PT HAS DONE WELL TODAY. BIOX REMAINED WNL ON 3.5L VIA NC, PT DESATURATES WITH ACTIVITY, BUT RECOVERS QUICKLY. TRILOGY DELIVERED BY ERICA, [place] BEFORE DC. NO ACUTE CHANGES THIS SHIFT, WILL REPORT TO ONCOMING RN.
--- NOTE | 2018-08-09 06:01 | NUR ---
SHIFT SUMMARY PT ALERT AND ORIENTED X 3 THROUGHOUT SHIFT. HE DENIED ANY UNMET NEEDS. HIS VITALS WERE STABLE T/O SHIFT WITH SOME DESATURATION TOWARDS END OF SHIFT. PT DID HAVE TO GO UP WITH HIS O2 TO 6 LITERS. RESPIRATORY AWARE. PT SLEPT OFF AND ON DURING THE NIGHT. HIS CAME IN TO SEE HIM MID SHIFT. PT HAS 2X SIDE RAILS IN PLACE, BED IN THE LOWEST POSITION AND NON SLIP SOCKS ON FOR SAFETY. PT ABLE TO AMBULATE TO BATHROOM, BUT DOES DESAT WITH ANY FGSVDB4L/AMBULATION. PT WILL CONTINUE TO BE MONITORED UNTIL HANDOFF TO DAYSHIFT RN.
--- NOTE | 2018-08-09 07:45 | NUR ---
DR. VARNER INTO ROOM TO ASSESS PT. DISCUSSED WITH MD PT ONLY USED THE TRILOGY A COUPLE OF HOURS LAST NIGHT. MD WAS HOPING PT WOULD USE LONGER, MD ISN'T COMFORTABLE DISCHARGING PATIENT UNTIL HE KNOWS PATIENT WILL BE COMPLIANT WITH TRILOGY.
--- NOTE | 2018-08-09 07:55 | NUR ---
FIRE HOSE CURER CALLED TO NOTIFY THIS RN THAT PT HAD CONVERTED TO A-FIB WITH RVR. RATE IS UP IN THE 130S. WAS IN ROOM A THIS TIME AND CHECKED THE TELEMETRY MONITORS. WOULD LIKE TO MONITOR PTS RATE AND RHYTHM FOR APPROX 20 MINUTES AND CALL HIM IF RHYTHM PROGRESSES. 0815-PT IS BACK IN NSR. WILL CONTINUE TO MONITOR.
--- NOTE | 2018-08-09 11:22 | NUR ---
INITIAL ASSESSMENT: PT SITTING UP ON THE EDGE OF THE BED, AWAKE ALERT AND OXE. PT DENIES PAIN AT THIS TIME. HRR. LS DIM WITH INSP/EXP WHEEZING T/O, THEY ARE ALSO COARSE. PT HAS WEAK NPC. BIOX WNL ON 4L VIA NC, RT TITRATED OXYGEN DOWN FROM 6L TO 4L VIA NC BECUASE BIOX WAS 97%. BIOX 93% ON 4L VIA NC, RT STATES SHE WILL CONTINUE TO TITRATE NEEDED. PER REPORT PT USED TRILOGY ONLY A COUPLE OF HOURS LAST NIGHT, PT ENCOURAGED TO USE TRILOGY MUCH TOLERATED. PPP. TRACE EDEMA NOTED. VSS. PT DENIES OTHER NEEDS AT THIS TIME.
--- NOTE | 2018-08-09 12:00 | NUR ---
INITIAL ASSESSMENT UNCHANGED. VSS. BIOX WNL ON 4L VIA NC. PT HAS USED TRILOGY FOR APPROX 2 HOURS COLLECTIVELY THIS SHIFT, SO FAR. PT DENIES NEEDS AT THIS TIME, WILL CONTINUE TO MONITOR.
--- NOTE | 2018-08-09 14:00 | NUR ---
REPORT GIVEN TO JUVENCIO BROTHERS.
--- NOTE | 2018-08-09 15:07 | NUR ---
ASSUMED PT CARE. INTRODUCED SELF TO PT. NO CONCERNS AT THIS TIME. BED IN LOW POSITION, CALL LITE IN REACH, CALLS APPROP
--- NOTE | 2018-08-09 18:26 | NUR ---
PT PLEASANT THIS AFT. DENIES PAIN AT THIS TIME. STATES FEELS IS IMPROVING. DID PUT BACK ON TRILOGY AFTER DINNER. PT STATES IS TOLERABLE. NO OTHER CONCERNS AT THIS TIME. BED IN LOW POSITION,C ALL LITE IN REACH, CALLS APPROP
--- NOTE | 2018-08-10 05:41 | NUR ---
SHIFT SUMMARY PT ALERT AND ORIENTED X 3 THROUGHOUT SHIFT. HE WAS COOPERATIVE WITH VITALS AND ASSESSMENTS. PT HAD NO ACUTE CHANGES TO VITALS T/O SHIFT, BUT DID HAVE SOME DECREASED O2 SATURATION WHEN ON HIS TRILOGY. PT TOLERATED TRILOGY BUT SATS WERE POOR. PT SLEPT WELL DURING THE NIGHT. PT WAS ABLE TO MAKE NEEDS KNOWN AND COMMUNICATED WITH STAFF EFFECTIVELY. HE WAS ABLE TO AMBULATE WITH 1 PERSON SBA AND FWW. HE HAS NON SLIP SOCKS IN PLACE, BED IN LOWEST POSITION AND CALL LIGHT WITHIN REACH. PT DENIED ANY UNMET NEEDS DURING THE NIGHT. HE WILL CONTINUE TO BE MONITORED UNTIL HANDOFF TO DAYSHIFT RN.
--- NOTE | 2018-08-10 10:45 | NUR ---
AM NOTE PT ALERT AND ORIENTED. SR/ST. SAT ON THE SIDE OF THE BED FOR BREAKFAST. WHILE LYING IN BED ON HIS RIGHT SIDE HE WAS SAT 96% ON 4L N/C. WEANED TO 3L N/C. WHEN PT ROLLED ONTO HIS BACK SAT DROPPED TO 86%. TURNED O2 BACK UP TO 4L N/C. SAT 91%. EATING WELL. LIKES STRAWBERRY ENSURE. DENIED PAIN. TALKED WITH R/T ABOUT PT TRILOGY MACHINE. PEDRO IS GOING TO LEAVE A MESSAGE FOR ERICA TO COME SEE PT TOMORROW AND DO MORE EDUCATING AND TRAINING. DR ARIAS AWARE OF PT POOR TOLERANCE TO THE TRILOGY. CONTINUE POT.
--- NOTE | 2018-08-10 20:19 | NUR ---
1900 ASSUMED CARE OF PATIENT, ON ASSESSMENT PATIENT LAYING IN BED W\O COMPLAINTS OR CONCERNS, SEE [facility] FOR FULL ASSESSMENT. CALL LIGHT IN REACH, BED IN LOW POSITION, PLANS FOR THIS SHIFT DISSCUSSED.
--- NOTE | 2018-08-12 05:02 | NUR ---
END OF SHIFT SUMMARY ASSUMED CARE OF PT @1900. PT ALERT AND OREINTED, TALKING WITH STAFF. PRESENTS SLIGHTLY CONFUSED AT TIMES BUT REORIENTABLE. PT ON NC 5L UPON SHIFT CHANGE. PT REQUESTING TRILOGY TO BE PUT ON. 5L BLEED IN O2 IN PLACE. HAD TO BE TITRATED TO 6L DUE TO EXERTIONAL DYSPNEA AND "CATCHING UP". TIOTRATED BACK DOWN TO 5L. PT HAS ONLY TOLERATED TRILOGY FOR 3 HOURS TOTAL THIS SHIFT. PT CURRENTLY ON 4L NC POST BEING TITRATED DOWN FROM 5L. PT'S SPO2 POSITIONAL. WHILE LYING ON RIGHT SIDE, PT SHOWS 95%, LAYING ON BACK/LEFT SIDE SPO2 GENERALLY DIPS BELOW 90%. PT HAS REQUIRED VERY LITTLE ASSISTANCE THIS NOC SHIFT. HAS BEEN ASLEEP OFF AND ON T/O NIGHT ACCORDING TO PT. PT HAS CONTINUED TO HAVE CONGESTED COUGH, AUSCULTATION ABSENT FOR CRACKLES. COUGHING NON PRODUCTIVE. PT HAS CALL LIGHT NEXT TO HIM. BED IN LOWEST POSITION. WILL CONTINUE TO MONITOR P UNTIL SHIFT CHANGE. PT TO HOPEFULLY DC THIS AM.
--- NOTE | 2018-08-12 07:30 | NUR ---
AM ASSESSMENT: Pt sitting up at edge of bed. LS very diminished on L side, R side with insp wheeze. BT positive. Pulses palp. HR reg. Pt denies pain. States that he wants to be discharged today. That is the hopeful plan. pt on 5L oxygen at this time. VSS. Will continue to monitor.
[2018-08-12] MEDS ORDERED: METO25ER PO (12:33)
[2018-08-12] MEDS ORDERED: PRED20 PO (12:35)
[2018-08-12] MEDS ORDERED: XARELTO20 MG PO (12:36)
--- NOTE | 2018-08-12 12:45 | NUR ---
SPOKE TO ERICA PARIS - HE REPORTED NO DME ORDER NEEDED - ALL HANDLED. [facility] DID SAY THAT [facility] HAS BEEN SUPPLYING THE OXYGEN - TO CONTACT [facility] WITH PT'S OXYGEN NEEDS. SPOKE TO JOEL, AT [facility] - SHE SAID THE OXYGEN SHOULD FOLLOW WITH THE TRILOGY, AND SHE WOULD LOOK UP THE MEDICARE RULES. SHE ALSO REPORTED THAT THE PROCESS IS IN PLACE FOR NEW EQUIPMENT, PT HAS HAD OXYGEN FOR 5 YEARS. JOEL SAID SHE WILL CONTACT ERICA AND SPEAK TO [facility]. SPOKE TO ERICA PARIS, AND HE IS GOING TO REVIEW AND RUN THE INSURANCE. ERICA AND [facility] WILL NEED TO WORK OUT THESE LEGAL ISSUES.
--- NOTE | 2018-08-12 14:33 | NUR ---
DISCHARGE: Pt was given verbal and written discharge orders. Denies quesitons. IV discontinued, cath intact. Rx called to [facility]. Shama here with portable oxygen tank and will meet pt at home to set up trilogy. F/U appointments were already set. Pt denies questions or needs. Left via w/c with [facility]. Stable at time of discharge.
== END 2018-08-12 14:34 | disposition home or self-care (01) | DRG 871 ==
LOC: ER 07:23 → ICUW 08:39 → PCU 08-04 05:31
PROVIDERS: Hospitalist; Internal Medicine; Internal Medicine Critical Care Medicine; Nurse Practitioner Acute Care; Physician Assistant; ADMIT Family Medicine
PROC: 0BH17EZ Insertion of Endotracheal Airway into Trachea, Via Natural or Artificial Opening (ICD-10-PCS; principal; 2018-07-30)
PROC: 5A1945Z Respiratory Ventilation, 24-96 Consecutive Hours (ICD-10-PCS; 2018-07-30)
DX: A41.9 Sepsis, unspecified organism (principal); J96.22 Acute and chronic respiratory failure with hypercapnia; J96.21 Acute and chronic respiratory failure with hypoxia; J18.9 Pneumonia, unspecified organism; G92 Toxic encephalopathy; E44.1 Mild protein-calorie malnutrition; J44.1 Chronic obstructive pulmonary disease with (acute) exacerbation; Z68.1 Body mass index [BMI] 19.9 or less, adult; I24.8 Other forms of acute ischemic heart disease; N17.9 Acute kidney failure, unspecified; R65.20 Severe sepsis without septic shock; I25.10 Atherosclerotic heart disease of native coronary artery without angina pectoris; I10 Essential (primary) hypertension; E11.9 Type 2 diabetes mellitus without complications; Z99.81 Dependence on supplemental oxygen; R79.89 Other specified abnormal findings of blood chemistry; I48.91 Unspecified atrial fibrillation; G47.33 Obstructive sleep apnea (adult) (pediatric); D50.9 Iron deficiency anemia, unspecified; E83.39 Other disorders of phosphorus metabolism; F17.210 Nicotine dependence, cigarettes, uncomplicated; B34.8 Other viral infections of unspecified site; Z95.5 Presence of coronary angioplasty implant and graft
CPT/HCPCS: 31500; 31720; 36415; 36600; 71045; 80048; 80053; 80069; 82607; 82728; 82746; 82803; 82947; 83540; 83550; 83605; 83735; 83880; 84100; 84145; 84443; 84484; 85025; 85027; 87040; 87070; 87205; 87486; 87581; 87633; 87798; 92610; 93005; 93010; 93306; 94002; 94003; 94640; 94644; 94660; 94761; 94762; 96361; 96374; 96375; 97110; 97162; 97166; 97530; 97535; 99285-25; C9113; J0330; J0360; J0456; J0696; J1650; J1815; J2060; J2250; J2370; J2704; J2920; J2930; J3475; J7030; J7050; J7512; P9046

== ENCOUNTER 2018-08-29 19:15 | Emergency (ER) | payer MEDICARE ==
[~2018-08-29] VITALS: Ht 177.8 cm; Wt 51.7 kg
[~2018-08-29 19:15] MED LIST changes: -ALBU8HFA2 INH; +ALBU90OI INH; +ASPI81CH PO; -ASPI81EC PO; -BUDE6HFA; +BUDE6HFA PO; +FURO20 PO; +METO25ER PO; +POTA8 PO; +PRED20 PO; +XARELTO20 MG PO
[2018-08-30] MEDS ORDERED: Norco 5-325 Ta1 EACH PO (21:34)
== END 2018-08-29 20:20 | disposition home or self-care (01) ==
LOC: ER 19:15
DX: S41.112A Laceration without foreign body of left upper arm, initial encounter (principal); S41.111A Laceration without foreign body of right upper arm, initial encounter; R07.81 Pleurodynia; Z79.899 Other long term (current) drug therapy; Z79.84 Long term (current) use of oral hypoglycemic drugs; Z79.52 Long term (current) use of systemic steroids; Z79.82 Long term (current) use of aspirin; E11.9 Type 2 diabetes mellitus without complications; J44.9 Chronic obstructive pulmonary disease, unspecified; Z87.891 Personal history of nicotine dependence; W18.30XA Fall on same level, unspecified, initial encounter
CPT/HCPCS: 90471; 90714; 99283-25

== ENCOUNTER 2018-08-30 19:11 | Emergency (ER) | payer MEDICARE ==
[~2018-08-30] VITALS: Ht 180.3 cm; Wt 51.7 kg
[2018-08-30 20:06] LABS: BASOPHILS ABSOLUTE AUTO 0.01 K/mm3 (0.00-0.23); BASOPHILS PERCENT AUTO 0 % (0-2); EOSINOPHILS ABSOLUTE AUTO 0.07 K/mm3 (0.00-0.68); EOSINOPHILS PERCENT AUTO 1 % (0-6); Hematocrit 25.4 % (37.0-53.0); Hemoglobin 7.1 g/dL (13.5-17.5); IMMATURE GRAN ABSOLUTE AUTO 0.08 K/mm3 (0.00-0.10); IMMATURE GRAN PERCENT AUTO 1 % (0-1); LYMPHOCYTES ABSOLUTE AUTO 1.44 K/mm3 (0.84-5.20); LYMPHOCYTES PERCENT AUTO 12 % (21-46); MONOCYTES ABSOLUTE AUTO 0.98 K/mm3 (0.16-1.47); MONOCYTES PERCENT AUTO 8 % (4-13); Mean Corpuscular HGB 27.3 pg (26.0-34.0); Mean Corpuscular Volume 98 fL (80-100); Mean Platelet Volume 9.7 fL (9.1-12.4); NEUTROPHILS ABSOLUTE AUTO 9.22 K/mm3 (1.96-9.15); NEUTROPHILS PERCENT AUTO 78 % (41-73); NRBC ABSOLUTE 0.02 K/mm3 (0.00-0.02); NRBC Auto 0.2 /100 WBC (0.0-0.2); Platelet Count 261 K/mm3 (150-400); RDW Coefficient Variation 15.9 % (11.7-14.2); RDW Standard Deviation 55.9 fL (35.1-46.3)
[2018-08-30 20:21] LABS: International Normalized Ratio 1.41; Prothrombin Time Results 14.5 Sec (9.7-11.5)
[2018-08-30 20:27] LABS: Albumin, Blood 2.7 g/dL (3.4-5.0); Albumin/Globulin Ratio 0.8 (0.8-1.8); Bilirubin, Total 0.3 mg/dL (0.1-1.0); Bun/Creatinine Ratio 25.6 (12.0-20.0); Calcium, Blood 8.4 mg/dL (8.5-10.1); Creatinine, Blood 1.68 mg/dL (0.60-1.20); Globulin, Blood 3.6 g/dL (2.2-4.0); Potassium, Blood 4.5 mmol/L (3.5-5.5); Total Protein, Blood 6.3 g/dL (6.4-8.2)
[2018-08-30] MEDS ORDERED: Norco 5-325 Ta1 EACH PO (21:34)
== END 2018-08-30 22:00 | disposition home or self-care (01) ==
LOC: ER 19:11
PROVIDERS: Physician Assistant
DX: S20.212A Contusion of left front wall of thorax, initial encounter (principal); S51.012A Laceration without foreign body of left elbow, initial encounter; D64.9 Anemia, unspecified; E11.9 Type 2 diabetes mellitus without complications; J44.9 Chronic obstructive pulmonary disease, unspecified; G47.33 Obstructive sleep apnea (adult) (pediatric); F17.200 Nicotine dependence, unspecified, uncomplicated; Z79.899 Other long term (current) drug therapy; Z79.84 Long term (current) use of oral hypoglycemic drugs; Z79.82 Long term (current) use of aspirin; W19.XXXA Unspecified fall, initial encounter
CPT/HCPCS: 36415; 71046; 80053; 85025; 85610; 85730; 99283-25; A9270-GY

== ENCOUNTER 2018-09-03 08:28 | Inpatient (IN) | payer MEDICARE ==
[~2018-09-03] VITALS: Ht 177.8 cm; Wt 54.1 kg
[~2018-09-03 08:28] MED LIST changes: +Norco 5-325 Ta1 EACH PO
[2018-09-03 09:12] LABS: BASOPHILS ABSOLUTE AUTO 0.01 K/mm3 (0.00-0.23); BASOPHILS PERCENT AUTO 0 % (0-2); EOSINOPHILS ABSOLUTE AUTO 0.01 K/mm3 (0.00-0.68); EOSINOPHILS PERCENT AUTO 0 % (0-6); Hematocrit 19.8 % (37.0-53.0); IMMATURE GRAN PERCENT AUTO 1 % (0-1); LYMPHOCYTES ABSOLUTE AUTO 0.76 K/mm3 (0.84-5.20); LYMPHOCYTES PERCENT AUTO 6 % (21-46); MONOCYTES ABSOLUTE AUTO 0.61 K/mm3 (0.16-1.47); MONOCYTES PERCENT AUTO 5 % (4-13); Mean Corpuscular HGB 27.1 pg (26.0-34.0); Mean Corpuscular HGB Conc 28.8 g/dL (31.5-36.5); Mean Corpuscular Volume 94 fL (80-100); Mean Platelet Volume 10.4 fL (9.1-12.4); NEUTROPHILS ABSOLUTE AUTO 10.52 K/mm3 (1.96-9.15); NEUTROPHILS PERCENT AUTO 88 % (41-73); Platelet Count 241 K/mm3 (150-400); RDW Coefficient Variation 15.6 % (11.7-14.2); RDW Standard Deviation 53.5 fL (35.1-46.3); White Blood Cell Count 12.01 K/mm3 (4.00-11.30)
[2018-09-03 09:13] LABS: Hemoglobin 5.7 g/dL (13.5-17.5)
[2018-09-03 09:30] LABS: Albumin, Blood 2.4 g/dL (3.4-5.0); Albumin/Globulin Ratio 0.7 (0.8-1.8); Bilirubin, Total 0.4 mg/dL (0.1-1.0); Bun/Creatinine Ratio 37.6 (12.0-20.0); Calcium, Blood 8.3 mg/dL (8.5-10.1); Creatinine, Blood 1.57 mg/dL (0.60-1.20); Globulin, Blood 3.5 g/dL (2.2-4.0); Potassium, Blood 5.7 mmol/L (3.5-5.5); Total Protein, Blood 5.9 g/dL (6.4-8.2)
--- NOTE | 2018-09-03 13:00 | NUR ---
PT ARRIVED TO ROOM 327 FROM ED WITH BLOOD INFUSING. AT BEDSIDE AND ASSISTED PT WITH EATING HIS LUNCH. OXYGEN AT 3L/M BY NV. BRUISNG NOTED AROUND CHEST AND SHOULDERS AND ALONG ARMS. SKIN TEARS NOTED TO R SHOULDER AND L ELBOW AND KNEE.
[2018-09-03 15:05] LABS: Percent Saturation 7.9 % (20.0-50.0)
[2018-09-03 16:31] LABS: RETIC HGB EQUIVALENT 21.7 pg (28.20-36.60); RETICULOCYTE COUNT PERCENT 4.37 % (0.50-2.50)
--- NOTE | 2018-09-03 19:07 | NUR ---
CLinical Visit: Pt is sitting up in bed. His brother and his sister in law are at bedside. He is short of breath. Blood running. Reviewed POLST form, DNR status. Discussed that a POLST form could help prevent interventions that he does not want - such as chest compressions and intubation. He confirms that these are his wishes. Filled out POLST form, but he does not want to sign it without his present or at least discussed with his . He does not know when she will be in. POLST states NO CPR, No intubation, limited interventions. It is consistent with his wishes. Sister in law expresses concern about his condition. Reviewed that he IS hospice appropriate at this time. She states that pt had 6 other siblings, now all that is left is 1 brother. He just lost his sister recently. Family has had many traumas in the last 1 year. POLST form left at bedside. It is filled out, just needs signature from pt. On [place] POLST forms, signature from pt or surrogate is RECOMMENDED, but not reqired. Verbal consent is ok, but signature is best. Palliative care to follow up with pt and family to try and get this signed. Pt is very ill chronically and is ill enough to go on hospice care.
--- NOTE | 2018-09-03 19:24 | NUR ---
SHIFT SUMMARY TURNED PT ON HIS SIDE PUSHING ON HIS R HIP WITH HIM SCREAMING OUT IN PAIN. CT TO PELVIS NOTED WITH FX. NOTIFIED MD ABOUT IMAGING STUDY AND PTS DISCOMFORT WITH MOVEMENT. SEE NEW ORDERS. CONSULT CALLED IN. PT NOTED NOW WITH MOIST COUGH THAT WASN'T NOTED EARLIER. CONTINUOUS OXIMETRY ON AND OCC DROPPING TO 70-80'S AFTER EXERTION IE EATING. FAMILY IN AND OUT. BED ALARM ON. USING URINAL APPROPRIATELY WITH ASSISTANCE. R SHOULDER SKIN TEAR BLEEDING THROUGH DRESSING ONCE TODAY.
[2018-09-03 20:33] LABS: Hematocrit 26.5 % (37.0-53.0); Hemoglobin 8.1 g/dL (13.5-17.5)
[2018-09-04 05:08] LABS: Hematocrit 25.1 % (37.0-53.0); Hemoglobin 7.6 g/dL (13.5-17.5); Mean Corpuscular HGB 27.7 pg (26.0-34.0); Mean Corpuscular HGB Conc 30.3 g/dL (31.5-36.5); Mean Corpuscular Volume 92 fL (80-100); Mean Platelet Volume 10.6 fL (9.1-12.4); Platelet Count 189 K/mm3 (150-400); RDW Coefficient Variation 15.1 % (11.7-14.2); RDW Standard Deviation 49.8 fL (35.1-46.3); Red Blood Cell Count 2.74 M/mm3 (4.30-5.90); White Blood Cell Count 10.25 K/mm3 (4.00-11.30)
[2018-09-04 05:29] LABS: Calcium, Blood 8.6 mg/dL (8.5-10.1); Creatinine, Blood 1.66 mg/dL (0.60-1.20); Potassium, Blood 5.8 mmol/L (3.5-5.5)
--- NOTE | 2018-09-04 07:22 | NUR ---
a + orintated to self, flights of confusion, call light in reach, saline locked, walking rounds completed with day shift
--- NOTE | 2018-09-04 11:00 | NUR ---
per patient to be npo.
[2018-09-04 14:20] LABS: Hemoglobin 7.5 g/dL (13.5-17.5)
--- NOTE | 2018-09-04 16:42 | NUR ---
Pt visit this afternoon. Pt is resting in bed with his eyes open but appears to be sleeping. Pt is cachectic with ashoned skin color. Pt's niece is present during visit. Engaged in discussion regarding goals of care. Niece reports not knowing what goals should be at this time. She reports not being involved as much as other family members. She does report wanting to know if Pt is a candidate for hip surgery. Instructed her that the surgeon will determine appropriatness for surgery. POLST form does not have Pt signature at this time. Read palliative note from previous visit. Pt would like to have his sign POLST. Received call from Palliative Care [facility] Lacer Makenzie and she expresses concerns regarding Pt's current condition. She reports discussion regarding end of life care should be considered. Spoke with Pt's bedside nurse Megha and she reports similar concerns and discussion regarding end of life should be made when Pt's is present. Palliative Care will F/U to establish goals of care.
--- NOTE | 2018-09-04 18:46 | NUR ---
ALERT. SLOW TO RESPOND. MEDICATED FOR HIP PAIN WITH GOOD RESULTS. PAIN TO HIP WITH ANY MOVEMENT. REMOVED DRESSINGS TO LEFT ELBOW AND RT POSTERIOR BACK WITH LARGE CLOT ON BACK AND STILL OOZING AFTER REMOVING DRESSING. REDRESSED BY . BRUISES T/O. ON CONT SAT MONITOR. [facility]
[2018-09-05 05:05] LABS: BASOPHILS ABSOLUTE AUTO 0.01 K/mm3 (0.00-0.23); BASOPHILS PERCENT AUTO 0 % (0-2); EOSINOPHILS ABSOLUTE AUTO 0.01 K/mm3 (0.00-0.68); EOSINOPHILS PERCENT AUTO 0 % (0-6); Hematocrit 25.4 % (37.0-53.0); Hemoglobin 7.5 g/dL (13.5-17.5); IMMATURE GRAN ABSOLUTE AUTO 0.03 K/mm3 (0.00-0.10); IMMATURE GRAN PERCENT AUTO 0 % (0-1); LYMPHOCYTES ABSOLUTE AUTO 0.59 K/mm3 (0.84-5.20); LYMPHOCYTES PERCENT AUTO 6 % (21-46); MONOCYTES ABSOLUTE AUTO 0.57 K/mm3 (0.16-1.47); MONOCYTES PERCENT AUTO 6 % (4-13); Mean Corpuscular HGB Conc 29.5 g/dL (31.5-36.5); Mean Platelet Volume 10.3 fL (9.1-12.4); NEUTROPHILS ABSOLUTE AUTO 8.86 K/mm3 (1.96-9.15); NEUTROPHILS PERCENT AUTO 88 % (41-73); Platelet Count 184 K/mm3 (150-400); RDW Coefficient Variation 14.8 % (11.7-14.2); RDW Standard Deviation 50.4 fL (35.1-46.3); Red Blood Cell Count 2.68 M/mm3 (4.30-5.90); White Blood Cell Count 10.07 K/mm3 (4.00-11.30)
[2018-09-05 05:07] LABS: Mean Corpuscular Volume 95 fL (80-100)
[2018-09-05 05:29] LABS: Bun/Creatinine Ratio 37.4 (12.0-20.0); Creatinine, Blood 1.71 mg/dL (0.60-1.20); Potassium, Blood 5.8 mmol/L (3.5-5.5)
--- NOTE | 2018-09-05 07:23 | NUR ---
alert at baseline, wounds still seeping, still in pain, when medicated enough to control pain slow to respond, call light in reach, saline locked, 15l via rebreather, walking rounds completed with day staff
--- NOTE | 2018-09-05 07:36 | NUR ---
TALKED TO ABOUT PATIENT SEEMS MORE CONFUSED. LIES AND STARES INTO SPACE. WORDS GARBLED. LAST PAIN MED YESTERDAY AT ABOUT [address] HEAD ORDERED. CALLED RADIOLOGY AND WILL DO WHILE DOWN THERE.
--- NOTE | 2018-09-05 08:04 | NUR ---
RT SHLR DRESSING CHANGED BEFORE GOING FOR XRAY. DRESSING SATURATED, STILL OOZING BLOOD.
[2018-09-05 10:48] LABS: PCO2 Arterial 86.7 mmHg (35-45); PO2 Arterial 62.4 mmHg (80-100); pH Blood Arterial 7.27 (7.35-7.45)
--- NOTE | 2018-09-05 12:49 | NUR ---
transferred to pcu. report to dash cisse
--- NOTE | 2018-09-05 13:03 | NUR ---
PT ARRIVED TO PCU 16 VIA BED FROM MEDICAL FLOOR, HE IS CONFUSED, YELLS OUT WHEN MOVED, ANSWERS YES NO, AND FOLLOWS COMMANDS. LUNGS ARE DIM T/O, RESP EVEN AND UNLABORED, NO COUGH NOTED, HRR, TELE IN PLACE RUNNING ST WITH PVC'S PER MONITOR, SEE STRIP, NO EDEMA NOTED, PPP+1, CAP REFILL <3SEC, VS STABLE, AFEBRILE, IV SITE TO R AC IS CLEAR AND PATENT, PIV TO LEFT FA IS CLEAR AND PATENT, BTX4, ABD FLAT SOFT NONTENDER, VOIDS VIA URINAL A[place]O HAS ATTENDS IN PLACE, HAS MANY BRUISINGS TO CHEST AND UPPER EXT, WOUNDS TO EXT, BACK AND LEFT KNEE HAS A DRESSING, HEELS ARE RED AND SOFT, HAVE THEM FLOATED ON PILLOW. ELEANOR, CALL LIGHT IN REACH.
--- NOTE | 2018-09-05 14:53 | NUR ---
Clinical Visit: Pt is on bipap, not doing well. Discussed with respiratory therapist. She is getting another ABG on pt. Spoke to nurse, Maci. She states that pt's was in earlier today, but now has left. She will notify palliative care if she comes back in today. Call placed to , Lurdes. Her voicemail is not set up and I am unable to leave a message.
[2018-09-05 15:05] LABS: PO2 Arterial 68.9 mmHg (80-100); pH Blood Arterial 7.29 (7.35-7.45)
[2018-09-05 15:06] LABS: PCO2 Arterial 85.2 mmHg (35-45)
--- NOTE | 2018-09-05 17:01 | NUR ---
HAD DISCUSSION WITH DANIEL FROM [facility] REGARDING MR. WILDER, WHILE AT LAST HOME VISIT PT HAD DISCUSSION WITH RT ABOUT HOSPICE, WE DISCUSSED WHAT THE PT HAD SAID AT THAT TIME IN HOPES THAT THIS WILL BE CONSTRUCTIVE FOR HER CONVERSATIONS WITH PT AND THE PT. PT HAD SAID AT THE LAST VISIT THAT IT WAS BEING HEAVILY CONSIDERED AND THAT HE HAS HAD A GOOD LIFE AND THAT IT MIGHT BE TIME TO CONSIDER ACCEPTING COMFORT HELP.
--- NOTE | 2018-09-05 18:28 | NUR ---
PT WENT INTO A HEART RATE OF 160-170 AND SUSTAINED FOR FIVE MINUTES, CALL TO DR. RAMIREZ, GAVE 5MG LOPRESSOR WITH NO RESULTS TO HEART RATE, BUT DID DROP SBP TO 85. MONITORED, AND CAME UP TO NORMAL RANGE. PT IS NOT VERY RESPONSIVE TO VERBAL THIS AFTERNOON. SPIKED A TEMP OF 101.2. DR. RAMIREZ CAME IN TO SEE HIM, NEW ORDERS RECIEVED. TALKED ABOUT ICU. ALSO SPOKE WITH CHARGE NURSE IN ICU ABOUT TRANSFUSING FFP WITH A TEMP, SHE FELT IT WOULD BE OK. GAVE HIM TYLENOL SUPPOS FOR HIS TEMP. IT HAS COME DOWN AT THIS TIME. HE SEEMS CONFUSED, IS CONTINUING ON THE BIPAP. DR. WALLACE IN TO SEE HIM. CALL LIGHT IN REACH.
[2018-09-06 04:07] LABS: Hematocrit 25.8 % (37.0-53.0); Hemoglobin 7.9 g/dL (13.5-17.5); Mean Corpuscular HGB 29.2 pg (26.0-34.0); Mean Corpuscular HGB Conc 30.6 g/dL (31.5-36.5); Mean Corpuscular Volume 95 fL (80-100); Mean Platelet Volume 10.6 fL (9.1-12.4); Platelet Count 184 K/mm3 (150-400); RDW Coefficient Variation 15.1 % (11.7-14.2); RDW Standard Deviation 51.2 fL (35.1-46.3); Red Blood Cell Count 2.71 M/mm3 (4.30-5.90); White Blood Cell Count 13.58 K/mm3 (4.00-11.30)
[2018-09-06 04:21] LABS: International Normalized Ratio 1.02; Prothrombin Time Results 10.8 Sec (9.7-11.5)
[2018-09-06 04:25] LABS: Bun/Creatinine Ratio 41.8 (12.0-20.0); Calcium, Blood 8.5 mg/dL (8.5-10.1); Creatinine, Blood 1.53 mg/dL (0.60-1.20); Potassium, Blood 5.6 mmol/L (3.5-5.5)
--- NOTE | 2018-09-06 04:51 | NUR ---
SHIFT SUMMARY: PATIENT VERY CONFUSED, STATING THAT WE ARE TRYING TO POISON AND THAT IS WHY HE IS REFUSING PAIN MEDICATION AND WATER. WAS ABLE TO DO MOUTH CARE BUT PATIENT REFUSING ALL STAFF AT THIS TIME. BIPAP REMAINED ON THE MAJORITY OF THE SHIFT. WAITING ON RESULTS FROM AM ABG'S. NURSING ROUNDS INCREASED, BED LOW AND LOCKED WITH EXIT ALARM ON AND CALL LIGHT WITHIN REACH.
[2018-09-06 05:21] LABS: BAND PERCENT MAN 20 % (0-8); BASOPHILS PERCENT MAN 0 % (0-2); EOSINOPHILS PERCENT MAN 0 % (0-6); LYMPHOCYTES ABSOLUTE MAN 0.13 K/mm3 (0.84-5.20); LYMPHOCYTES PERCENT MAN 1 % (21-46); MONOCYTES ABSOLUTE MAN 0.67 K/mm3 (0.16-1.47); MONOCYTES PERCENT MAN 5 % (4-13); NEUTROPHILS ABSOLUTE MAN 12.76 K/mm3 (1.96-9.15); SEG NEUTROPHILS PERCENT MAN 74 % (41-73); TOTAL CELLS COUNTED 100
[2018-09-06 05:45] LABS: PCO2 Arterial 65.1 mmHg (35-45); PO2 Arterial 61.3 mmHg (80-100); pH Blood Arterial 7.38 (7.35-7.45)
--- NOTE | 2018-09-06 11:30 | NUR ---
Clinical Visit; Reviewed with nurse, Maci. She states that is present in the room. Pt has been confused. He has expressed behaviors that he wasn't before - he is cussing at staff last night. Barb Day states that pt is currently better than he was. Spoke with RT. Reviewed lab values, breathing issues. Pt's , Lurdes, is in the room. Reviewed POLST form. She states that she has one on the fridge at home for the pt. Instructed to please bring this document in so that we can have a copy: There is no POLST scanned into the system. She states that the POLST was filled out at PCP's office. Reviewed the pt's current illness, his projected hip surgery, intubation during surgery. She is asking about the risk. Advised that one of the risks is that he won't be able to come off of the vent due to his compromised lungs and chronic disease. She verbalizes understanding. Pt may need to be worse before family places him on comfort care. They are encouraged that he is better today, although he is still confused; he has cleared up in mentation a little from last night. Palliative care to remain involved.
--- NOTE | 2018-09-06 13:30 | NUR ---
PT RESTING QUIETLY IN BED, DOING BETTER TODAY, IS TOLERATING BEING ON AN OXYMIZER FOR SEVERAL HRS. TODAY AND ATE A BIT OF LUNCH. CALL LIGHT IN REACH.
--- NOTE | 2018-09-06 19:08 | NUR ---
PT DOING BETTER TODAY, HE RECIEVED ONE PAIN PILL, REPORTED THAT HE WAS OK THE REST OF THE DAY. HAS BEEN REPOSITIONED, AND IS EATING A LITTLE BIT OF HIS MEALS. FAMILY HAS BEEN IN TO SEE HIM, CALL LIGHT IN REACH.
--- NOTE | 2018-09-06 23:52 | NUR ---
APPROX 2300 PATIENT RHYTHUM CHANGED TO AFIB 150'S TO 160', ALL OTHER VSS. MD NOTIFIED WITH ORDERS RECIEVED, PATIENT AYSYMPTOMATIC. PATIENT GIVEN 1X DOSE OF LOPRESSOR, AND APPROX 2340 PATIENT HR/RHYTHUM BACK TO SINUS IN 70'S.
--- NOTE | 2018-09-07 02:20 | NUR ---
PATIENT C/O WANTING TO SEVERAL TIMES, PATIENT KEEPS REPEATING; "JUST LET ME GO, IM TIRED OF THIS, JUST LET ME "
--- NOTE | 2018-09-07 05:00 | NUR ---
SHIFT SUMMARY: PATIENT INTERMITTENT AFIB AND SR, APPROX 0400 PATIENT MAINTAINING AFIB WITH RATE RANGING FROM 120 TO 150, MD TO BE NOTIFIED. PATIENT INTERMITTENT CONFUSION AND CLARITY, CIWA SCORE FLUCTUATING WITH COGNITIVE CHANGES. ALL OTHER VSS, BED LOW AND LOCKED, CALL LIGHT WITHIN REACH, MONITORING CLOSELY.
--- NOTE | 2018-09-07 07:35 | NUR ---
RECEIVED REPORT FROM DENEEN PEREZ, AND ASSUMED CARE OF PT.
--- NOTE | 2018-09-07 08:40 | NUR ---
DR. RAMIREZ AT BEDSIDE FOR EVALUATION.
[2018-09-07 09:30] LABS: Hemoglobin 7.2 g/dL (13.5-17.5); Mean Corpuscular Volume 97 fL (80-100); Mean Platelet Volume 10.5 fL (9.1-12.4); NRBC ABSOLUTE 0.02 K/mm3 (0.00-0.02); NRBC Auto 0.2 /100 WBC (0.0-0.2); Platelet Count 219 K/mm3 (150-400); RDW Coefficient Variation 15.4 % (11.7-14.2); RDW Standard Deviation 54.3 fL (35.1-46.3); Red Blood Cell Count 2.48 M/mm3 (4.30-5.90); White Blood Cell Count 10.31 K/mm3 (4.00-11.30)
[2018-09-07 09:46] LABS: Bun/Creatinine Ratio 35.4 (12.0-20.0); Creatinine, Blood 1.61 mg/dL (0.60-1.20); Potassium, Blood 4.5 mmol/L (3.5-5.5)
[2018-09-07 09:51] LABS: BAND PERCENT MAN 10 % (0-8); BASOPHILS PERCENT MAN 0 % (0-2); EOSINOPHILS PERCENT MAN 0 % (0-6); LYMPHOCYTES ABSOLUTE MAN 0.61 K/mm3 (0.84-5.20); LYMPHOCYTES PERCENT MAN 6 % (21-46); MONOCYTES PERCENT MAN 3 % (4-13); NEUTROPHILS ABSOLUTE MAN 9.38 K/mm3 (1.96-9.15); SEG NEUTROPHILS PERCENT MAN 81 % (41-73); TOTAL CELLS COUNTED 100
--- NOTE | 2018-09-07 18:50 | NUR ---
RECEIVED PT TO ROOM PCU 11 AT 1745. A/O X4, ALUTIIQ, LUNGS WITH CRACKLES RML AND RLL, 2L O2 NC, SATS 92%, C/O MILD SOB WITH EXERTION AND TALKING. SR - ST ON MONITOR, VSS. C/O RIGHT UPPER ABDOMEN/LOWER LUNG AREA PAIN WITH MOVEMENT AND DEEP BREATHING. RIGHT UPPER ABDOMEN WITH PERCUTANEOUS DRAIN IN PLACE, CAPPED.
[2018-09-08 04:16] LABS: Hematocrit 31.4 % (37.0-53.0); Hemoglobin 9.7 g/dL (13.5-17.5); Mean Corpuscular HGB 29.4 pg (26.0-34.0); Mean Corpuscular HGB Conc 30.9 g/dL (31.5-36.5); Mean Corpuscular Volume 95 fL (80-100); Mean Platelet Volume 10.3 fL (9.1-12.4); Platelet Count 219 K/mm3 (150-400); RDW Coefficient Variation 15.7 % (11.7-14.2); RDW Standard Deviation 55.1 fL (35.1-46.3)
[2018-09-08 04:32] LABS: Bun/Creatinine Ratio 37.4 (12.0-20.0); Calcium, Blood 8.7 mg/dL (8.5-10.1); Creatinine, Blood 1.47 mg/dL (0.60-1.20); Potassium, Blood 4.2 mmol/L (3.5-5.5)
[2018-09-08 05:41] LABS: BAND PERCENT MAN 8 % (0-8); BASOPHILS PERCENT MAN 0 % (0-2); EOSINOPHILS PERCENT MAN 0 % (0-6); LYMPHOCYTES ABSOLUTE MAN 1.14 K/mm3 (0.84-5.20); LYMPHOCYTES PERCENT MAN 11 % (21-46); MONOCYTES ABSOLUTE MAN 0.31 K/mm3 (0.16-1.47); MONOCYTES PERCENT MAN 3 % (4-13); NEUTROPHILS ABSOLUTE MAN 8.94 K/mm3 (1.96-9.15); SEG NEUTROPHILS PERCENT MAN 78 % (41-73); TOTAL CELLS COUNTED 100
--- NOTE | 2018-09-08 19:44 | NUR ---
PT HAD A GOOD DAY TODAY, HE WAS ABLE TO HAVE A BM AFTER SEVERAL DAYS. PT FAMILY IN AND OUT OF ROOM TODAY, PT HAS ELECTED TO HAVE HIP SURGERY TO REPAIR RIGHT HIP. PT CONTINUES TO REQUIRE 8 L O2 VIA OXYIMZER. WILL CONTINUE TO MONITOR AND GIVE REPORT TO SUNNY RN, HOB ELEVATED, BED LOCKED AND LOW, CALL LIGHT WITHIN EASY REACH OF PATIENT.
--- NOTE | 2018-09-09 07:45 | NUR ---
SHIFT SUMMARY PATIENT WITHDRAWN WITH A FLAT AFFECT THROUGHOUT THE NIGHT. PATIENT AWAKE FOR MOST OF THE NIGHT BUT DID APPEAR TO FALL ASLEEP AT APPROX 0500. BIPAP PLACED AT THAT TIME FOR EASE OF BREATHING. PATIENT ON 8L VIA OXYMIZER WHILE WAKE. PATIENT MEDICATED FOR PAIN AND CIWA SCORES PER EMAR. IV FLUIDS RUNNING PER EMAR. PATIENT TURNED Q2H PATIENT TOLERATED. PATIENT UNABLE TO TOLERATE SCD'S DUE TO PAIN IN HIS RIGHT LEG. PATIENT CURRENTLY APPEARS TO BE ASLEEP, BIPAP IN PLACE. REPORT GIVEN TO ONCOMING RN.
--- NOTE | 2018-09-09 09:58 | NUR ---
The pt's is at the bedside, caring for him. He is very sleepy. He did wake up briefly to ask for the bipap mask to be taken off. It was replaced with oxymizer. He also stated that he needed to pee and his assisted him with the use of the urinal while he stayed lying down, supine position. Sandro falls asleep again very quickly, and deeply. Right shoulder dressing was removed as it is gauze and tape and there is concern for adherence to the wound. Skin tear about 4-6 cm long noted underneath, with bruising, but dry, and no drainage noted at all. Scab is present on the wound bed. Superficial wound was then covered with mepilex dressing to protect it but avoid trauma to the area with tape or gauze adherence.
--- NOTE | 2018-09-09 10:05 | NUR ---
The pt is too sleepy to take his morning medication. Waiting until he is more awake and alert enough to swallow safely.
--- NOTE | 2018-09-09 10:51 | NUR ---
Sandro is more awake now, and answering questions. He stated that he is awake enough to take pills. His and her daughter are at the bedside.
--- NOTE | 2018-09-09 14:07 | NUR ---
States he is having pain in his right foot, a burning, tingling, aching pain which is nearly constant. States his right hip is not painful unless moved.
--- NOTE | 2018-09-09 14:37 | NUR ---
SpO2 dropped to 85% while the pt was lying in bed, using the urinal. I was alerted by the continuous oxymetry alarm. Oxygen delivery was at 5 l/min via oxymizer. This was increased to 6 l/min, and while he was awake the SPO2 increased to 88%; However, as he nods off to sleep it drops again, as he tends to breathe with his mouth open. Oxymizer placed in his mouth and spo2 increased and sustained at 90%. He stated that he prefers not to use the bipap because he has trouble tolerating the air blowing on his face.
--- NOTE | 2018-09-09 17:50 | NUR ---
Found pt sitting up in bed, attempting to eat dinner, but spo2 68% on 5 l/min oxymizer. Turned up the oxygen until his spo2 improved; he is now able to eat with 15 l/min oxymizer, and spo2 is 84 %. He is not anxious, not distressed, and no more tachypneic than earlier today. Spo2 is slowly improving, and he is doing pursed lip breathing in between bites of food/sips of drink.
--- NOTE | 2018-09-09 17:52 | NUR ---
sp02 88% while continuing to eat dinner, very slowly taking very small bites with frequent stops. He states that "I'm just not very hungry right now."
--- NOTE | 2018-09-09 18:06 | NUR ---
The pt was not interested in his dinner; however, he was provided with a strawberry glucerna "milk shake" which he was interested in eating instead. He has become much more awake, interactive and appropriate. He did not experience somnulence after getting 1 [place] tablet earlier for right foot pain. This morning his lethargy apparently was from the 1 mg of IV ativan which he got around 5 am. This evening the pt is asking me why they did not do the surgery today, and i explained that Dr. Landon said that the pt was not awake enough to sign a consent form this morning. The patient sputtered an obscenity and said that he thought he had signed everything he already needed to sign. I explained that the surgeon would be here to see him again and that the surgery would be tomorrow afternoon, at the earliest, per Dr. San's statement to me this morning.
--- NOTE | 2018-09-09 18:33 | NUR ---
The pt drank his milkshake while on 15 l/min oxymizer, to keep spo2 between 90 and 93%. Afterwards, he is maintaining spo2 92-93% now on 6 l/min while at rest.
--- NOTE | 2018-09-10 01:00 | NUR ---
PCU NIGHTSHIFT ASSUMED CARE OF PT APPROX. 1900. PT A&O X4. BUT WITH A FLAT AFFECT. ASSESSMENT COMPLETED. VITAL SIGNS STABLE. PT HAVE 6L OXYGEN VIA OXYMIZER ON AT THIS TIME. WITH SATS IN 90'S. PT REPORTS PAIN TOELRABLE AT THIS TIME. BED IN LOW POSTION, CALL LIGHT IN REACH AND PT DENIES ANY NEEDS AT THIS TIME. WILL CONTINUE TO MONITOR.
[2018-09-10 04:24] LABS: BASOPHILS ABSOLUTE AUTO 0.01 K/mm3 (0.00-0.23); BASOPHILS PERCENT AUTO 0 % (0-2); EOSINOPHILS ABSOLUTE AUTO 0.03 K/mm3 (0.00-0.68); EOSINOPHILS PERCENT AUTO 0 % (0-6); Hematocrit 36.8 % (37.0-53.0); Hemoglobin 10.8 g/dL (13.5-17.5); IMMATURE GRAN ABSOLUTE AUTO 0.06 K/mm3 (0.00-0.10); IMMATURE GRAN PERCENT AUTO 1 % (0-1); LYMPHOCYTES ABSOLUTE AUTO 0.69 K/mm3 (0.84-5.20); LYMPHOCYTES PERCENT AUTO 7 % (21-46); MONOCYTES ABSOLUTE AUTO 0.66 K/mm3 (0.16-1.47); MONOCYTES PERCENT AUTO 7 % (4-13); Mean Corpuscular HGB 28.9 pg (26.0-34.0); Mean Corpuscular HGB Conc 29.3 g/dL (31.5-36.5); Mean Platelet Volume 9.6 fL (9.1-12.4); NEUTROPHILS PERCENT AUTO 85 % (41-73); Platelet Count 290 K/mm3 (150-400); RDW Coefficient Variation 14.8 % (11.7-14.2); RDW Standard Deviation 53.6 fL (35.1-46.3); Red Blood Cell Count 3.74 M/mm3 (4.30-5.90); White Blood Cell Count 9.85 K/mm3 (4.00-11.30)
[2018-09-10 04:25] LABS: Mean Corpuscular Volume 98 fL (80-100)
[2018-09-10 04:40] LABS: Bun/Creatinine Ratio 31.9 (12.0-20.0); Calcium, Blood 8.9 mg/dL (8.5-10.1); Creatinine, Blood 1.38 mg/dL (0.60-1.20); Potassium, Blood 4.8 mmol/L (3.5-5.5)
--- NOTE | 2018-09-10 05:30 | NUR ---
SHIFT SUMMARY PT PLEASANT, COOPERATIVE AND USES CALL LIGHT APPROPRIATELY. PT ASSESSMENT FINDINGS REMAIN UNCHANGED. VITAL SIGNS STABLE. PT HAD INCREASED PAIN INTERMITENTLY. PRN PAIN MEDICAITON GIVEN FOR THIS. TURNED PATIENT EVERY TWO HOURS, ALTHOUGH PT REFUSED A COUPLE OF TIMES AND REPORTS HE WAS COMFORTABLE AND DID NOT WANT TO MOVE. PT OXYGEN RANGED FROM 6L-10L WITH SATS IN 90'S. PT REMAIN A&OX4. PT NPO SINCE MIDNIGHT TO BE PREPARED FOR SURGERY TODAY SOMETIME. BED IN LOW POSITION, CALL LIGHT IN REACH AND PT DENIES ANY NEEDS AT THIS TIME. WILL CONTINUE TO MONITOR UNTIL HANDOFF TO DAYSHIFT RN.
--- NOTE | 2018-09-10 08:20 | NUR ---
NURSING PCU DAYSHIFT: Assumed care of pt at approx 0700. A/O, pleasant, cooperative w/care. Denies any pain at rest though reacts painfully w/repositioning and any movement of R foot. Skin is fragile, several bruises scattered on ext's and upper torso/chest, small scab and abrasion w/mepilex dressings in place. Bedrest at this time, general weakness noted, c/o chronic numbness/tingling of all ext's. Tele in place, NSR, no c/o CP/pressure, HT distant, HTN prior to a.m. meds, trace edema to R ankle. 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 Abd SNT, BT+, voids using urinal. PIV x1, NS infusing at 75cc/hr w/abx as scheduled. Pt denies any current needs or questions regarding plan of care. NPO at this time for planned R hip repair. RT at bedside chaning pt to HF NC w/humidified air. Call light in reach and pt is able to use w/o difficulty. Awaiting rounding from PMD and surgeon, cont to monitor for changes.
--- NOTE | 2018-09-10 11:36 | NUR ---
Marisol is resting quietly in bed this morning watching TV. He is waiting for surgery to repair his R hip which is scheduled for later today. He reports he is sleeping better than he has in awhile per his report and he reports he has no pain at the present time. Family is out running errands and he says they will be back later today. Discussed risks of surgery and long recovery period. He is aware of the risk of surgery and is willing proceed with surgery hoping that he will be able to improve his quality of life post op. He has no questions or requests at this time. PC will continue to follow for symptom management and advanced care planning.
--- NOTE | 2018-09-10 17:34 | NUR ---
NURSING PCU DAYSHIFT SUMMARY: No significant changes noted t/o shift. Remains hypertensive, NSR, no c/o CP/pressure. O2 sat maintained low to mid 90's on 6-7L HF NC, desaturation w/exertion, respiratory status otherwise unchanged. Seen by PMD, pt update provided to ortho by this RN, anesthesiologist at bedside for assessment. Plan of care discussed w/pt and family member and it was determined that O2 demand needs to improve before R hip repair. Goal O2 rate is 2-4L. Pt is currently in bed having supper though will return to NPO status again at 2400 in anticipation of possible sx 09/11. Will evaluate O2 demand in a.m. Pt denies any needs at this time. Call light in reach and pt has been able to use w/o difficulty. No s/s of acute distress, cont to monitor until rpt is given to NOC RN.
--- NOTE | 2018-09-10 23:04 | NUR ---
PCU NIGHTSHIFT ASSUMED CARE OF PT QUINTEN. 1899. PT A&OX4. ASSESSMENT COMPLETED. VITAL SIGNS STABLE. PT REPORTS PAIN LEVEL IS DECREASING SINCE RECIEVING PRN PAIN MEDICAITON. PT ABLE TO ASSIST WITH REPOSITIONING HIMSELF IN BED. PT ON 9L OXYMIZER AT THIS TIME WITH SATS IN 90'S. TALKED WITH PT ABOUT WEARING BIPAP TONIGHT AND PT AGREED TO GIVE IT A TRY FOR PART OF THE NIGHT. MEPILEX'S REMAIN IN PLACE ON ABRASIONS AND SKIN TEARS. BED IN LOW POSTION, CALL LIGHT IN REACH AND PT DENIES ANY NEEDS AT THIS TIME.
--- NOTE | 2018-09-11 05:07 | NUR ---
SHIFT SUMMARY PT PLEASANT, COOPERATIVE AND USES CALL LIGHT APPROPRIATELY. PT REMAINED A&OX4. ASSESSMENT FINDINGS REMAIN UNACHANGED. VITAL SIGNS STABLE. PT SPENT PART OF SHIFT ON BIPAP. WHEN NOT ON BIPAP, 7-10L OF OXYGEN WAS PLACED VIA OXYMIZER. PT ABLE TO SLEEP FOR MOST OF SHIFT. FRIENDS AT BEDSIDE SKYLAIGN SHBRITTNEY FOR A VISIT. PT PAIN REMAINS TOLERABLE AND WAS ABLE TO MAKE USE OF REPOSITIONING IN ORDER TO AVOID INCREASED PAIN. BED IN LOW POSITION, CALL LIGHT IN REACH AND PT DENIES ANY NEEDS AT THIS TIME. WILL CONTINUE TO MONITOR UNTIL HANDOFF TO DAYSHIFT RN.
--- NOTE | 2018-09-11 07:32 | NUR ---
NURSING PCU DAYSHIFT: Assumed care of pt at approx 0700. A/O, cooperative w/care. C/O 4-5/10 R hip pain, treating w/meds and positioning. Skin is fragile w/several bruises scattered t/o upper torso/chest area as well as UE's, no significant breakdown noted. General weakness t/o, bedrest/NWB on RLE, c/o chronic numbness/tingling of all ext's. Tele in place, NSR, no c/o CP/pressure, HTN prior to a.m. meds, trace RLE edema, pulses palp. L/S dim t/o w/scattered wheezes, denies dyspnea at rest, desaturation w/exertion, O2 sat mid 90's on 10L HF NC, continuous bedside O2 monitoring, occ loose/AIR TECHNICIAN cough. Abd SNT, BT+, voiding w/o difficulty. PIV x1, NS infusing at 75cc/hr. Pt denies any current needs or questions regarding plan of care. Will allow pt to eat breakfast as O2 has not been titrated down to goal rate for surgery. RT at bedside this a.m. for breathing tx. Awaiting rounding from PMD and ortho. Call light remains in reach, cont to monitor for any changes.
[2018-09-11 09:08] LABS: BASOPHILS ABSOLUTE AUTO 0.02 K/mm3 (0.00-0.23); BASOPHILS PERCENT AUTO 0 % (0-2); EOSINOPHILS ABSOLUTE AUTO 0.02 K/mm3 (0.00-0.68); EOSINOPHILS PERCENT AUTO 0 % (0-6); Hematocrit 40.6 % (37.0-53.0); Hemoglobin 11.9 g/dL (13.5-17.5); IMMATURE GRAN ABSOLUTE AUTO 0.09 K/mm3 (0.00-0.10); IMMATURE GRAN PERCENT AUTO 1 % (0-1); LYMPHOCYTES ABSOLUTE AUTO 0.58 K/mm3 (0.84-5.20); LYMPHOCYTES PERCENT AUTO 6 % (21-46); MONOCYTES ABSOLUTE AUTO 0.49 K/mm3 (0.16-1.47); MONOCYTES PERCENT AUTO 5 % (4-13); Mean Corpuscular HGB 28.6 pg (26.0-34.0); Mean Corpuscular HGB Conc 29.3 g/dL (31.5-36.5); Mean Corpuscular Volume 98 fL (80-100); Mean Platelet Volume 9.6 fL (9.1-12.4); NEUTROPHILS ABSOLUTE AUTO 8.08 K/mm3 (1.96-9.15); NEUTROPHILS PERCENT AUTO 87 % (41-73); Platelet Count 331 K/mm3 (150-400); RDW Coefficient Variation 14.5 % (11.7-14.2); RDW Standard Deviation 51.8 fL (35.1-46.3); Red Blood Cell Count 4.16 M/mm3 (4.30-5.90); White Blood Cell Count 9.28 K/mm3 (4.00-11.30)
[2018-09-11 09:32] LABS: Bun/Creatinine Ratio 28.9 (12.0-20.0); Calcium, Blood 9.1 mg/dL (8.5-10.1); Creatinine, Blood 1.35 mg/dL (0.60-1.20); Potassium, Blood 4.6 mmol/L (3.5-5.5)
--- NOTE | 2018-09-11 17:51 | NUR ---
NURSING PCU DAYSHIFT SUMMARY: Seen by PMD, new d/o received. CXR completed, labs drawn including BNP, meds given as ordered. IVF discontinued, pulmonology consult called and telephone update provided to consulting physicians. Family at bedside this a.m., plan of care discussed, questions addressed. Pt has had increased intermittent confusion t/o the afternoon and appears less interactive w/staff. Attempted to get OOB at one time, pt reoriented and alarm was verified to be set. Denies any needs at this time, call light in reach, though rounding has increased for pt safety. Cont to monitor until rpt is given to NOC RN.
[2018-09-12 04:31] LABS: Calcium, Blood 8.8 mg/dL (8.5-10.1); Creatinine, Blood 1.29 mg/dL (0.60-1.20); Potassium, Blood 4.5 mmol/L (3.5-5.5)
--- NOTE | 2018-09-12 05:44 | NUR ---
PCU NOC SHIFT SUMMARY PATIENT ALERT AND ORIENTED TO SELF AND LOCATION. PATIENT REPORS PAIN THAT COMES AND GOES IN RIGHT HIP AND HEADACHE, RELIEVED WITH PAIN MEDICATIONS PER EMAR. RESP LABORED AT TIMES AND UNEVEN - OXYGEN TITRATED FROM 6-10 LITERS T/O SHIFT DUE TO NEED TO KEEP SP02 >88%. PATIENT ALERT BUT DROWSY T/O SHIFT. MULTIPLE WOUNDS, BRUISING AND RED SKIN SPOTS. PATIENT HAS BRUISING NOTED AROUND RIGHT HIP, GROIN TO SCROTAL AREA. PATIENT REPORTED THAT HE HAS HAD MULTIPLE FALLS AT HOME AND EVEN SMOKED WITH HIS OXYGEN ON ON ACCICENT AND BURNEED HIS FACE. PATIENT TURNED Q2 TOLERATED AND RECIEVED A BED BATH THIS SHIFT. PATIENT URINATES IN URINAL WELL. NO BM THIS SHIFT. PATIENT DNR. NO ACUTE CHANGES THIS SHIFT. WILL CONTINUE TO MONITOR AND REPORT TO DAYSHIFT RN.
--- NOTE | 2018-09-12 10:37 | NUR ---
Sandro is alert, oriented, and conversant this morning to conversations initiated by other people. He mentioned that he didn't know what was going on, and that "no one tells you what's going on until it's all over with". I explored this a bit more with him, to assess his understanding of his current treatment plan and he became irritable. His was at the bedside, too. He had understood that the surgery wouldn't be done until he was off of oxgyen, which he said, "I'm never going to be off the oxygen, I've been on as much as 4 liters"; I clarified that he is needing more oxygen that he uses at baseline, currently needing 8 l/min, and that is why the anesthesiologist was hesitant to do the surgery. He didn't seem to understand that his respiratory status is worse than his baseline. He stated that he just wants to go home, but the doctor said that he can't go home yet. I explained that if he did not want to get treatment, that decision was up to him, and he needs to let us know if he changes his mind. He was quite irritable, finally ending with, "I'll do whatever they tell me I have to do, and stay here as long as they say I need to." At one point he even shouted angrily at his because he did not agree with her. She was very calm, holding his hand, and asking him what he wanted. He seems to be angry at the situation, disagrees with treatment (states he takes his pills just fine with water--he doesn't, he chokes--states that he should be able to be up walking since he was walking before he came into the hospital.) But he is also apathetic, shrugging his shoulders and saying that whatever, I'm not going to argue, I'll do whatever they say I have to do.
--- NOTE | 2018-09-12 10:50 | NUR ---
Oxygen requirements. Dr. Garvin turned the pt's oxgyen down to 6 l/min this morning, but after several minutes the pt's spo2 was 82%. For recovery, he required the oxgyen to be turned up to 8-10 l/min and it took several minutes to bring the spo2 up to 88%. While taking pills, being repositioned for linen change and using the bedpan, he requires at least 8-10 l/min to recover from the activity. He is wearing a hi flow nasal cannula. I asked him if it would help to have his home trilogy here in the hospital, and he adamantly said, "NO!". He stated that he uses it twice a day, for about an hour, but doesn't tolerate the air blowing in his face for longer than that.
--- NOTE | 2018-09-12 11:12 | NUR ---
While taking nebulizer treatment, spo2 dropped to 82% as the pt was breathing through his mouth, which is air per the RT Jose Ruvalcaba. Increased oxygen delivery to 8 l/min for recovery, and turned it down to 6 l /min after 3 minutes when spo2 recovered to 88%.
--- NOTE | 2018-09-12 12:29 | NUR ---
spo2 dropped to 82 % while eating on 6 l/min oxygen delivery. Increased for recovery, now spo2 is 88-89%.
[2018-09-13 04:03] LABS: BASOPHILS ABSOLUTE AUTO 0.02 K/mm3 (0.00-0.23); BASOPHILS PERCENT AUTO 0 % (0-2); EOSINOPHILS ABSOLUTE AUTO 0.05 K/mm3 (0.00-0.68); EOSINOPHILS PERCENT AUTO 1 % (0-6); Hematocrit 38.2 % (37.0-53.0); Hemoglobin 11.2 g/dL (13.5-17.5); IMMATURE GRAN ABSOLUTE AUTO 0.12 K/mm3 (0.00-0.10); IMMATURE GRAN PERCENT AUTO 1 % (0-1); LYMPHOCYTES ABSOLUTE AUTO 0.96 K/mm3 (0.84-5.20); LYMPHOCYTES PERCENT AUTO 10 % (21-46); MONOCYTES ABSOLUTE AUTO 0.68 K/mm3 (0.16-1.47); MONOCYTES PERCENT AUTO 7 % (4-13); Mean Corpuscular HGB 28.5 pg (26.0-34.0); Mean Corpuscular HGB Conc 29.3 g/dL (31.5-36.5); Mean Corpuscular Volume 97 fL (80-100); Mean Platelet Volume 9.2 fL (9.1-12.4); NEUTROPHILS ABSOLUTE AUTO 7.79 K/mm3 (1.96-9.15); NEUTROPHILS PERCENT AUTO 81 % (41-73); Platelet Count 318 K/mm3 (150-400); RDW Standard Deviation 50.6 fL (35.1-46.3); Red Blood Cell Count 3.93 M/mm3 (4.30-5.90); White Blood Cell Count 9.62 K/mm3 (4.00-11.30)
[2018-09-13 04:24] LABS: Anion Gap 3 mmol/L (6-16); Blood Urea Nitrogen 44 mg/dL (8-24); Bun/Creatinine Ratio 40.4 (12.0-20.0); CO2, Blood 40 mmol/L (21-32); Calcium, Blood 8.8 mg/dL (8.5-10.1); Chloride, Blood 97 mmol/L (98-108); Creatinine, Blood 1.09 mg/dL (0.60-1.20); Glomerular Filtration Rate >60 (60-); Glucose, Blood 166 mg/dL (70-99); Potassium, Blood 4.8 mmol/L (3.5-5.5); Sodium, Blood 140 mmol/L (136-145)
--- NOTE | 2018-09-13 07:10 | NUR ---
PCU NOC SHIFT SUMMARY PATIENT ALERT AND ORIENTED TO NEEDS T/O SHIFT X4. PATIENT REPORTS ONGOING PAIN RELIEVED WITH MEDICATION PER EMAR. PATIENT REMAINS VERY PAINFUL WITH ANY MOVEMENT THAT AFFECTS HIS RIGHT LEG. LUNG SOUNDS DIM/COARSE/WHEEZE T/O. PATIENT HAD SOFT BM'S T/O SHIFT. HEART RATE REMAINS SINUS IN THE 60'S T/O SHIFT WITH NO EVENTS NOTED. PATIENTS OXYGEN REQUIREMENT VARY PER ACTIVETY FROM 6-10 LPM. NO FURTHER CHANGES NOTED. REPORTED TO [place] BROTHERS.
--- NOTE | 2018-09-13 11:04 | NUR ---
Medicated for pain about 1.25 hours ago. He was sleeping until I woke him now; he states his pain is 4-5/10 in the right hip. Agreeable to get up to the chair to work with physical therapy at this time. Ceiling lift will be used to maintain non weight bearing on the right leg.
--- NOTE | 2018-09-13 13:36 | NUR ---
Assisted from chair to bed using ceiling lift. Dr. Chapman here to see the patient.
--- NOTE | 2018-09-14 12:53 | NUR ---
RECEIVED REPORT AND ASSUMED CARE OF PATIENT AT SHIFT CHANGE. PT IS PLEASANT AND IN NO DISTRESS THROUGHOUT THE MORNING. PT DID C/O SOME PAIN/DISCOMFORT IN RIGHT FOOT. OFFERED PAIN MEDICATION, PT DECLINED AND SAID HE WANTS TO WAIT FOR NOW. PT ATE HIS BREAKFAST AND LUNCH WELL, DR ONEAL IN TO SEE PATIENT, SUGGESTED TO HIM THAT HE SLOW DOWN AND TAKE BREATHES BETWEEN BITES SO HE DOES NOT DESAT SO SEVERELY WHILE EATING. THIS RN WILL REMIND PATIENT WITH DINNER TRAY. TITRATED O2 TO 5LPM, WHEN PATIENT WAS EATING LUNCH, PT DESATING, RETURNED TO 6 LPM. WILL CONTINUE TO TRY TO TITRATE IF APPROPRIATE. BED LOCKED AND LOW, HOB ELEVATED, CALL LIGHT WITHIN EASY REACH.
--- NOTE | 2018-09-14 13:31 | NUR ---
PROVIDED CIRCULATION CARE AND COMFORT FOR PATIENT, REMOVED MEJIA HOSE AND MASSAGED BLE. PT EXPRESSED RELIEF AND ASKED TO KEEP THE MEJIA HOSE OFF FOR NOW. WILL PUT BACK ON LATER IN THE AFTERNOON.
--- NOTE | 2018-09-14 18:22 | NUR ---
PT HAD A GOOD DAY TODAY, HE HAS HAD PLEASANT AFFECT AND FAMILY HAS BEEN AT BEDSIDE OFF AND ON THROUGHOUT THE DAY. PT O2 NEEDS HAVE CONTINUED AT 6 LPM VIA NC, ABLE TO TITRATE DOWN TO 5 LPM FOR SHORT TIME; HOWEVER PT NEEDS INCREASED AND PUT BACK TO 6 LPM. PT HAVING BM SMEARS THIS AFTERNOON, ATTENDS UNDER BUT NOT BUCKLED. PT CONTINUES TO USE URINAL APPROPRIATELY. WILL CONTINUE TO MONITOR AND GIVE REPORT TO NOC RN. BED LOCKED AND LOW, HOB ELEVATED, CALL LIGHT WITHIN EASY REACH. SCDS REMAIN OFF PER PATIENT REQUEST.
--- NOTE | 2018-09-14 22:39 | NUR ---
PATIENT RESTING IN BED TALKING WITH VISITORS. VERBALIZED GOOD PAIN CONTROL, BUT RESISTANT TO REPOSITIONING. OXYGEN CONTINUES AT 6L/NC, LUNG SOUNDS DECREASED BASES. PATIENT USING URINAL WITHOUT DIFFICULTY. PATIENT NIXON PO MEDICATIONS WITHOUT DIFFICULTY.
--- NOTE | 2018-09-15 06:15 | NUR ---
SUMMARY PATIENT SLEEPING OFF AND ON T/O NIGHT WITH 6L/NC. PATIENT REFUSING TO WEAR HIS TRILOGY FROM HOME. PATIENT REPOSITIONED SEVERAL TIMES T/O NIGHT AND PATIENT RETURNING TO HIS LEFT SIDE SHORTLY AFTER REPOSITIONING. PATIENT SLIGHTLY FORGETFUL, BUT REORIENTING EASILY. PATIENT DENIES NEED FOR PAIN MEDICATION THIS MORNING. PATIENT REF MEJIA HOSE AND REF PAS STOCKING DESPITE REMINDING PATIENT OF RISK OF DVT
[2018-09-15 06:29] LABS: BASOPHILS ABSOLUTE AUTO 0.03 K/mm3 (0.00-0.23); BASOPHILS PERCENT AUTO 0 % (0-2); EOSINOPHILS ABSOLUTE AUTO 0.05 K/mm3 (0.00-0.68); EOSINOPHILS PERCENT AUTO 1 % (0-6); Hematocrit 36.8 % (37.0-53.0); Hemoglobin 10.9 g/dL (13.5-17.5); IMMATURE GRAN ABSOLUTE AUTO 0.14 K/mm3 (0.00-0.10); IMMATURE GRAN PERCENT AUTO 1 % (0-1); LYMPHOCYTES ABSOLUTE AUTO 0.99 K/mm3 (0.84-5.20); LYMPHOCYTES PERCENT AUTO 10 % (21-46); MONOCYTES ABSOLUTE AUTO 0.61 K/mm3 (0.16-1.47); MONOCYTES PERCENT AUTO 6 % (4-13); Mean Corpuscular HGB 28.2 pg (26.0-34.0); Mean Corpuscular HGB Conc 29.6 g/dL (31.5-36.5); Mean Corpuscular Volume 95 fL (80-100); Mean Platelet Volume 9.4 fL (9.1-12.4); NEUTROPHILS ABSOLUTE AUTO 8.52 K/mm3 (1.96-9.15); NEUTROPHILS PERCENT AUTO 82 % (41-73); Platelet Count 333 K/mm3 (150-400); RDW Coefficient Variation 14.1 % (11.7-14.2); RDW Standard Deviation 49.5 fL (35.1-46.3); Red Blood Cell Count 3.86 M/mm3 (4.30-5.90); White Blood Cell Count 10.34 K/mm3 (4.00-11.30)
[2018-09-15 06:45] LABS: Albumin, Blood 2.2 g/dL (3.4-5.0); Anion Gap 3 mmol/L (6-16); Blood Urea Nitrogen 49 mg/dL (8-24); Bun/Creatinine Ratio 47.6 (12.0-20.0); CO2, Blood 44 mmol/L (21-32); Calcium, Blood 8.9 mg/dL (8.5-10.1); Chloride, Blood 91 mmol/L (98-108); Creatinine, Blood 1.03 mg/dL (0.60-1.20); Glomerular Filtration Rate >60 (60-); Glucose, Blood 160 mg/dL (70-99); Phosphorus, Blood 3.6 mg/dL (2.5-4.9); Potassium, Blood 4.6 mmol/L (3.5-5.5); Sodium, Blood 138 mmol/L (136-145)
--- NOTE | 2018-09-15 09:01 | NUR ---
RECEIVED REPORT AND ASSUMED CARE OF PATIENT. PT IS RESTING, WOKE UP FOR POSITIONING AND BREAKFAST. O2 NEEDS INCREASE WHEN PATIENT IS EATING. OTHERWISE, PT TITRATED DOWN TO 5LPM NC. WILL CONTINUE TO MONITOR AND FOLLOW ORDERS FOR THIS PATIENT. BED LOCKED AND LOW, CALL LIGHT WITHIN EASY REACH.
--- NOTE | 2018-09-15 14:35 | NUR ---
PT TRANSFERRED TO [facility] WITH [facility] TRANSFER. MEDICATED FOR PAIN PRIOR TO TRANSFER. SENT BELONGINGS AND HOME BIPAP HOME WITH DAUGHTER MARGE. WILL CALL TO INFORM HER OF THE TRANSFER WELL.
--- NOTE | 2018-09-15 14:54 | NUR ---
GAVE REPORT TO DENEEN JUDGE AT [facility] WHO WILL RECEIVE PATIENT INTO CARE FROM EMS. WENT OVER ALL SYSTEMS, NO QUESTIONS AT THIS TIME.
[2018-10-06] MEDS ORDERED: FINA5 PO (14:18)
[2018-10-06] MEDS ORDERED: CALC.25 PO (14:18)
[2018-10-06] MEDS ORDERED: MIRALAX17 GM PO (14:20)
[2018-10-06] MEDS ORDERED: PRAV20 PO (14:21)
[2018-10-06] MEDS ORDERED: FERSU300 PO (14:22)
[2018-10-06] MEDS ORDERED: Lopressor 25 mg25 MG PO (14:23)
[2018-10-06] MEDS ORDERED: SENN187 PO (14:24)
[2018-10-06] MEDS ORDERED: ACET500 PO (14:25)
[2018-10-06] MEDS ORDERED: LIDO700A20 TOP (14:27)
[2018-10-06] MEDS ORDERED: TRAM50 PO (14:28)
[2018-10-06] MEDS ORDERED: VOLTAREN GEL 1% TD (14:30)
== END 2018-09-15 14:14 | disposition home or self-care (01) | DRG 535 ==
LOC: ER 08:28 → MEDS 08:29 → PCU 09-04 12:48 → MEDS 09-04 12:49 → PCU 09-05 12:35
PROVIDERS: Internal Medicine; Physician Assistant; ADMIT Hospitalist
PROC: 30233N1 Transfusion of Nonautologous Red Blood Cells into Peripheral Vein, Percutaneous Approach (ICD-10-PCS; principal; 2018-09-13)
PROC: 30233L1 Transfusion of Nonautologous Fresh Plasma into Peripheral Vein, Percutaneous Approach (ICD-10-PCS; 2018-09-13)
DX: S72.001A Fracture of unspecified part of neck of right femur, initial encounter for closed fracture (principal); J81.0 Acute pulmonary edema; J96.21 Acute and chronic respiratory failure with hypoxia; D62 Acute posthemorrhagic anemia; E44.1 Mild protein-calorie malnutrition; N17.9 Acute kidney failure, unspecified; W19.XXXA Unspecified fall, initial encounter; J44.9 Chronic obstructive pulmonary disease, unspecified; Z99.81 Dependence on supplemental oxygen; I48.0 Paroxysmal atrial fibrillation; Z79.01 Long term (current) use of anticoagulants; I25.10 Atherosclerotic heart disease of native coronary artery without angina pectoris; F17.210 Nicotine dependence, cigarettes, uncomplicated; Z79.82 Long term (current) use of aspirin; E11.9 Type 2 diabetes mellitus without complications; I10 Essential (primary) hypertension
CPT/HCPCS: 36415; 36430; 36600; 70450; 71045; 71046; 72125; 73502; 73552; 73700; 80048; 80053; 80069; 82550; 82607; 82728; 82746; 82803; 82947; 83540; 83550; 83605; 83880; 85014; 85018; 85025; 85027; 85045; 85610; 86850; 86900; 86901; 86923; 87040; 92526; 92610; 93005; 93010; 94640; 94660; 94762; 97110; 97161; 97164; 97166; 97530; 99285-25; A9270; A9270-GY; G0378; J1940; J2060; J2543; J3411; J3475; J7030; J7042; J7050; J7120; P9016; P9059

== ENCOUNTER 2019-01-12 10:37 | Emergency (ER) | payer MEDICARE ==
[~2019-01-12] VITALS: Ht 180.3 cm; Wt 68.0 kg
[~2019-01-12 10:37] MED LIST changes: +ACET500 PO; +CALC.25 PO; +FERSU300 PO; +LIDO700A20 TOP; +Lopressor 25 mg25 MG PO; +MIRALAX17 GM PO; +SENN187 PO; +TRAM50 PO; +VOLTAREN GEL 1% TD
[2019-01-12] MEDS ORDERED: ALBU3IS INH (11:16)
[2019-01-12 11:31] LABS: BASOPHILS ABSOLUTE AUTO 0.02 K/mm3 (0.00-0.23); BASOPHILS PERCENT AUTO 0 % (0-2); EOSINOPHILS ABSOLUTE AUTO 0.07 K/mm3 (0.00-0.68); EOSINOPHILS PERCENT AUTO 1 % (0-6); Hematocrit 33.8 % (37.0-53.0); Hemoglobin 10.1 g/dL (13.5-17.5); IMMATURE GRAN ABSOLUTE AUTO 0.02 K/mm3 (0.00-0.10); IMMATURE GRAN PERCENT AUTO 0 % (0-1); LYMPHOCYTES ABSOLUTE AUTO 0.89 K/mm3 (0.84-5.20); LYMPHOCYTES PERCENT AUTO 12 % (21-46); MONOCYTES ABSOLUTE AUTO 0.33 K/mm3 (0.16-1.47); MONOCYTES PERCENT AUTO 5 % (4-13); Mean Corpuscular HGB 30.1 pg (26.0-34.0); Mean Corpuscular HGB Conc 29.9 g/dL (31.5-36.5); Mean Corpuscular Volume 101 fL (80-100); Mean Platelet Volume 10.1 fL (9.1-12.4); NEUTROPHILS ABSOLUTE AUTO 6.02 K/mm3 (1.96-9.15); NEUTROPHILS PERCENT AUTO 82 % (41-73); Platelet Count 144 K/mm3 (150-400); RDW Coefficient Variation 12.8 % (11.7-14.2); Red Blood Cell Count 3.36 M/mm3 (4.30-5.90); White Blood Cell Count 7.35 K/mm3 (4.00-11.30)
[2019-01-12 11:57] LABS: Troponin I <0.015 ng/mL (0.000-0.040)
[2019-01-12 12:03] LABS: Alanine Aminotransfer (ALT/SGP 12 U/L (12-78); Albumin, Blood 3.3 g/dL (3.4-5.0); Albumin/Globulin Ratio 0.9 (0.8-1.8); Alk Phos 70 U/L (50-136); Anion Gap 0 mmol/L (6-16); Aspartate Aminotrans (AST/SGOT 15 U/L (12-37); Bilirubin, Total 0.4 mg/dL (0.1-1.0); Blood Urea Nitrogen 35 mg/dL (8-24); Bun/Creatinine Ratio 27.1 (12.0-20.0); CO2, Blood 41 mmol/L (21-32); Calcium, Blood 8.9 mg/dL (8.5-10.1); Chloride, Blood 96 mmol/L (98-108); Creatinine, Blood 1.29 mg/dL (0.60-1.20); Globulin, Blood 3.8 g/dL (2.2-4.0); Glomerular Filtration Rate 58 (60-); Glucose, Blood 194 mg/dL (70-99); Potassium, Blood 5.8 mmol/L (3.5-5.5); Sodium, Blood 137 mmol/L (136-145); Total Protein, Blood 7.1 g/dL (6.4-8.2)
[2019-01-12] MEDS ORDERED: LEVFLO500 PO (13:14)
[2019-01-12] MEDS ORDERED: Prednisone20 MG PO (13:14)
== END 2019-01-12 14:09 | disposition home or self-care (01) ==
LOC: ER 10:37
PROVIDERS: Emergency Medicine
DX: J44.0 Chronic obstructive pulmonary disease with (acute) lower respiratory infection (principal); J98.01 Acute bronchospasm; J18.9 Pneumonia, unspecified organism; I10 Essential (primary) hypertension; I25.10 Atherosclerotic heart disease of native coronary artery without angina pectoris; E11.9 Type 2 diabetes mellitus without complications; G47.30 Sleep apnea, unspecified; Z79.899 Other long term (current) drug therapy; Z79.84 Long term (current) use of oral hypoglycemic drugs; Z79.51 Long term (current) use of inhaled steroids; Z87.891 Personal history of nicotine dependence; Z99.81 Dependence on supplemental oxygen
CPT/HCPCS: 71046; 80053; 83880; 84484; 85025; 93005; 93010; 96374; 99284-25; J2930

== ENCOUNTER 2019-04-30 12:45 | Emergency (ER) | payer MEDICARE ==
[~2019-04-30] VITALS: Ht 177.8 cm; Wt 59.0 kg
[~2019-04-30 12:45] MED LIST changes: +ALBU3IS INH; +LEVFLO500 PO; +Prednisone20 MG PO
[2019-04-30 13:25] LABS: BASOPHILS ABSOLUTE AUTO 0.02 K/mm3 (0.00-0.23); BASOPHILS PERCENT AUTO 0 % (0-2); EOSINOPHILS ABSOLUTE AUTO 0.05 K/mm3 (0.00-0.68); EOSINOPHILS PERCENT AUTO 1 % (0-6); Hematocrit 30.1 % (37.0-53.0); Hemoglobin 9.4 g/dL (13.5-17.5); IMMATURE GRAN ABSOLUTE AUTO 0.01 K/mm3 (0.00-0.10); IMMATURE GRAN PERCENT AUTO 0 % (0-1); LYMPHOCYTES ABSOLUTE AUTO 0.81 K/mm3 (0.84-5.20); LYMPHOCYTES PERCENT AUTO 14 % (21-46); MONOCYTES ABSOLUTE AUTO 0.38 K/mm3 (0.16-1.47); MONOCYTES PERCENT AUTO 7 % (4-13); Mean Corpuscular HGB 31.1 pg (26.0-34.0); Mean Corpuscular HGB Conc 31.2 g/dL (31.5-36.5); Mean Corpuscular Volume 100 fL (80-100); Mean Platelet Volume 10.5 fL (9.1-12.4); NEUTROPHILS ABSOLUTE AUTO 4.39 K/mm3 (1.96-9.15); NEUTROPHILS PERCENT AUTO 78 % (41-73); Platelet Count 111 K/mm3 (150-400); RDW Coefficient Variation 12.2 % (11.7-14.2); RDW Standard Deviation 44.7 fL (35.1-46.3); Red Blood Cell Count 3.02 M/mm3 (4.30-5.90); White Blood Cell Count 5.66 K/mm3 (4.00-11.30)
[2019-04-30 13:35] LABS: Albumin, Blood 3.3 g/dL (3.4-5.0); Bilirubin, Total 0.3 mg/dL (0.1-1.0); Bun/Creatinine Ratio 20.5 (12.0-20.0); Calcium, Blood 9.1 mg/dL (8.5-10.1); Creatinine, Blood 1.27 mg/dL (0.60-1.20); Globulin, Blood 3.4 g/dL (2.2-4.0); Potassium, Blood 4.5 mmol/L (3.5-5.5); Total Protein, Blood 6.7 g/dL (6.4-8.2)
== END 2019-04-30 14:33 | disposition home or self-care (01) ==
LOC: ER 12:45
PROVIDERS: Emergency Medicine
DX: S41.111A Laceration without foreign body of right upper arm, initial encounter (principal); R53.1 Weakness; Z79.899 Other long term (current) drug therapy; E11.9 Type 2 diabetes mellitus without complications; J44.9 Chronic obstructive pulmonary disease, unspecified; I10 Essential (primary) hypertension; I25.10 Atherosclerotic heart disease of native coronary artery without angina pectoris; W19.XXXA Unspecified fall, initial encounter
CPT/HCPCS: 80053; 85025; 93005; 93010; 99284-25

== ENCOUNTER 2020-01-10 17:37 | Emergency (ER) | payer MEDICARE, BC ==
[~2020-01-10] VITALS: Ht 180.3 cm; Wt 58.5 kg
[2020-01-10] MEDS ORDERED: SYMBICORT 16010.2 GM INH (17:44)
[2020-01-10] MEDS ORDERED: ASPI81CH PO (17:46)
[2020-01-10 18:47] LABS: BASOPHILS ABSOLUTE AUTO 0.02 K/mm3 (0.00-0.23); BASOPHILS PERCENT AUTO 0 % (0-2); EOSINOPHILS ABSOLUTE AUTO 0.11 K/mm3 (0.00-0.68); EOSINOPHILS PERCENT AUTO 2 % (0-6); Hematocrit 25.7 % (37.0-53.0); Hemoglobin 8.1 g/dL (13.5-17.5); IMMATURE GRAN ABSOLUTE AUTO 0.02 K/mm3 (0.00-0.10); IMMATURE GRAN PERCENT AUTO 0 % (0-1); LYMPHOCYTES ABSOLUTE AUTO 0.83 K/mm3 (0.84-5.20); LYMPHOCYTES PERCENT AUTO 12 % (21-46); MONOCYTES ABSOLUTE AUTO 0.66 K/mm3 (0.16-1.47); MONOCYTES PERCENT AUTO 10 % (4-13); Mean Corpuscular HGB 31.9 pg (26.0-34.0); Mean Corpuscular HGB Conc 31.5 g/dL (31.5-36.5); Mean Corpuscular Volume 101 fL (80-100); Mean Platelet Volume 10.9 fL (9.1-12.4); NEUTROPHILS ABSOLUTE AUTO 5.23 K/mm3 (1.96-9.15); NEUTROPHILS PERCENT AUTO 76 % (41-73); Platelet Count 150 K/mm3 (150-400); RDW Coefficient Variation 12.6 % (11.7-14.2); RDW Standard Deviation 46.5 fL (35.1-46.3); Red Blood Cell Count 2.54 M/mm3 (4.30-5.90); White Blood Cell Count 6.87 K/mm3 (4.00-11.30)
[2020-01-10 19:13] LABS: Albumin/Globulin Ratio 0.8 (0.8-1.8); Bilirubin, Total 0.4 mg/dL (0.1-1.0); Bun/Creatinine Ratio 28.1 (12.0-20.0); Calcium, Blood 9.5 mg/dL (8.5-10.1); Creatinine, Blood 1.35 mg/dL (0.60-1.20); Globulin, Blood 3.8 g/dL (2.2-4.0); Potassium, Blood 5.1 mmol/L (3.5-5.5); Total Protein, Blood 6.8 g/dL (6.4-8.2)
== END 2020-01-10 23:23 | disposition home or self-care (01) ==
LOC: ER 17:37
PROVIDERS: Emergency Medicine
DX: S82.832A Other fracture of upper and lower end of left fibula, initial encounter for closed fracture (principal); S40.011A Contusion of right shoulder, initial encounter; S50.11XA Contusion of right forearm, initial encounter; M25.561 Pain in right knee; R60.0 Localized edema; R51.9 Headache, unspecified; R09.02 Hypoxemia; E11.9 Type 2 diabetes mellitus without complications; J44.9 Chronic obstructive pulmonary disease, unspecified; I25.2 Old myocardial infarction; I10 Essential (primary) hypertension; I25.10 Atherosclerotic heart disease of native coronary artery without angina pectoris; Z79.899 Other long term (current) drug therapy; Z79.01 Long term (current) use of anticoagulants; Z79.82 Long term (current) use of aspirin; Z95.5 Presence of coronary angioplasty implant and graft; Z87.891 Personal history of nicotine dependence; Z23 Encounter for immunization; W18.30XA Fall on same level, unspecified, initial encounter
CPT/HCPCS: 70450; 73562-RT; 73590; 73610; 73630; 80053; 85025; 90471; 90714; 93005; 93010; 96374-59; 99284-25; J3010

== ENCOUNTER 2020-01-27 07:00 | Inpatient (IN) | payer BC, MEDICARE ==
[~2020-01-27] VITALS: Ht 172.7 cm; Wt 57.7 kg
[~2020-01-27 07:00] MED LIST changes: +SYMBICORT 16010.2 GM INH
[2020-01-27 07:55] LABS: BASOPHILS ABSOLUTE AUTO 0.02 K/mm3 (0.00-0.23); BASOPHILS PERCENT AUTO 0 % (0-2); EOSINOPHILS ABSOLUTE AUTO 0.09 K/mm3 (0.00-0.68); EOSINOPHILS PERCENT AUTO 1 % (0-6); Hematocrit 29.4 % (37.0-53.0); Hemoglobin 8.5 g/dL (13.5-17.5); IMMATURE GRAN ABSOLUTE AUTO 0.02 K/mm3 (0.00-0.10); IMMATURE GRAN PERCENT AUTO 0 % (0-1); LYMPHOCYTES ABSOLUTE AUTO 0.88 K/mm3 (0.84-5.20); LYMPHOCYTES PERCENT AUTO 12 % (21-46); MONOCYTES ABSOLUTE AUTO 0.35 K/mm3 (0.16-1.47); MONOCYTES PERCENT AUTO 5 % (4-13); Mean Corpuscular HGB 30.8 pg (26.0-34.0); Mean Corpuscular HGB Conc 28.9 g/dL (31.5-36.5); Mean Corpuscular Volume 107 fL (80-100); Mean Platelet Volume 10.4 fL (9.1-12.4); NEUTROPHILS ABSOLUTE AUTO 6.01 K/mm3 (1.96-9.15); NEUTROPHILS PERCENT AUTO 82 % (41-73); Platelet Count 116 K/mm3 (150-400); RDW Coefficient Variation 13.3 % (11.7-14.2); RDW Standard Deviation 51.2 fL (35.1-46.3); Red Blood Cell Count 2.76 M/mm3 (4.30-5.90); White Blood Cell Count 7.37 K/mm3 (4.00-11.30)
[2020-01-27 08:10] LABS: Alanine Aminotransfer (ALT/SGP 14 U/L (12-78); Albumin, Blood 3.6 g/dL (3.4-5.0); Albumin/Globulin Ratio 1.1 (0.8-1.8); Alk Phos 85 U/L (50-136); Aspartate Aminotrans (AST/SGOT 7 U/L (12-37); Bilirubin, Total 0.4 mg/dL (0.1-1.0); Blood Urea Nitrogen 38 mg/dL (8-24); Bun/Creatinine Ratio 28.4 (12.0-20.0); Calcium, Blood 9.7 mg/dL (8.5-10.1); Chloride, Blood 94 mmol/L (98-108); Creatinine, Blood 1.34 mg/dL (0.60-1.20); Globulin, Blood 3.4 g/dL (2.2-4.0); Glomerular Filtration Rate 55 (60-); Glucose, Blood 194 mg/dL (70-99); Potassium, Blood 4.9 mmol/L (3.5-5.5); Sodium, Blood 142 mmol/L (136-145); Troponin I 0.018 ng/mL (0.000-0.040)
[2020-01-27 08:15] LABS: Anion Gap Unable to Calculate mmol/L (6-16); CO2, Blood >45 mmol/L (21-32)
[2020-01-27 09:04] LABS: pH Blood Arterial 7.26 (7.35-7.45)
[2020-01-27 09:05] LABS: PCO2 Arterial > 105 mmHg (35-45)
[2020-01-27] MEDS ORDERED: METF500 PO (09:45)
[2020-01-27] MEDS ORDERED: CALC.25 PO (09:45)
[2020-01-27] MEDS ORDERED: TIOT18 INH (09:45)
[2020-01-27] MEDS ORDERED: METO25 PO (09:46)
[2020-01-27] MEDS ORDERED: SYMBICORT 16010.2 GM INH (09:46)
[2020-01-27] MEDS ORDERED: PRAVASTATIN SOD10 MG PO (09:46)
[2020-01-27] MEDS ORDERED: GABA100 PO (09:47)
[2020-01-27] MEDS ORDERED: MOXIFLOXACIN BOTHEYES (09:47)
[2020-01-27] MEDS ORDERED: Norco 5-325 Ta1 EACH PO (09:47)
[2020-01-27] MEDS ORDERED: ERYT1OIN BOTHEYES (09:48)
[2020-01-27 11:22] LABS: PO2 Arterial 62.1 mmHg (80-100); pH Blood Arterial 7.36 (7.35-7.45)
[2020-01-27 11:24] LABS: PCO2 Arterial 89 mmHg (35-45)
[2020-01-27] MEDS ORDERED: METF500C PO (12:09)
[2020-01-27] MEDS ORDERED: ASPI81CH PO (12:10)
[2020-01-27] MEDS ORDERED: Vitamin D2000 UNIT PO (12:10)
[2020-01-27 13:34] LABS: U Amphetamine Screen Not Detected; U Barbituate Screen Not Detected; U Benzodiazapine Screen Not Detected; U Buprenorphine Screen Not Detected; U Cannabinoids Screen Not Detected; U Cocaine Screen Not Detected; U Methadone Screen Not Detected; U Methamphetamine Screen Not Detected; U Opiates Screen Not Detected; U Oxycodone Screen Not Detected; U Phencyclidine Screen Not Detected; U Propoxyphene Screen Not Detected
[2020-01-28 04:01] LABS: BASOPHILS PERCENT AUTO 0 % (0-2); EOSINOPHILS PERCENT AUTO 0 % (0-6); Hematocrit 23.2 % (37.0-53.0); Hemoglobin 7.1 g/dL (13.5-17.5); IMMATURE GRAN ABSOLUTE AUTO 0.01 K/mm3 (0.00-0.10); IMMATURE GRAN PERCENT AUTO 0 % (0-1); LYMPHOCYTES ABSOLUTE AUTO 0.35 K/mm3 (0.84-5.20); LYMPHOCYTES PERCENT AUTO 11 % (21-46); MONOCYTES ABSOLUTE AUTO 0.02 K/mm3 (0.16-1.47); MONOCYTES PERCENT AUTO 1 % (4-13); Mean Corpuscular HGB 30.6 pg (26.0-34.0); Mean Corpuscular HGB Conc 30.6 g/dL (31.5-36.5); Mean Platelet Volume 10.6 fL (9.1-12.4); NEUTROPHILS ABSOLUTE AUTO 2.83 K/mm3 (1.96-9.15); NEUTROPHILS PERCENT AUTO 88 % (41-73); Platelet Count 103 K/mm3 (150-400); RDW Coefficient Variation 13.1 % (11.7-14.2); RDW Standard Deviation 47.3 fL (35.1-46.3); Red Blood Cell Count 2.32 M/mm3 (4.30-5.90); White Blood Cell Count 3.21 K/mm3 (4.00-11.30)
[2020-01-28 04:02] LABS: Base Excess Venous 22.7 mmol/L; Bicarbonate Venous 44.5 mmol/L (24.0-30.0); PO2 Venous 51.6 mmHg (38-42); pH Blood Venous 7.41 (7.34-7.37)
[2020-01-28 04:08] LABS: Mean Corpuscular Volume 100 fL (80-100)
[2020-01-28 04:23] LABS: Alanine Aminotransfer (ALT/SGP 11 U/L (12-78); Albumin, Blood 3.4 g/dL (3.4-5.0); Alk Phos 76 U/L (50-136); Aspartate Aminotrans (AST/SGOT 10 U/L (12-37); Bilirubin, Total 0.5 mg/dL (0.1-1.0); Blood Urea Nitrogen 46 mg/dL (8-24); Bun/Creatinine Ratio 33.1 (12.0-20.0); Calcium, Blood 9.7 mg/dL (8.5-10.1); Chloride, Blood 94 mmol/L (98-108); Creatinine, Blood 1.39 mg/dL (0.60-1.20); Globulin, Blood 3.3 g/dL (2.2-4.0); Glomerular Filtration Rate 53 (60-); Glucose, Blood 208 mg/dL (70-99); Potassium, Blood 5.2 mmol/L (3.5-5.5); Sodium, Blood 141 mmol/L (136-145); Total Protein, Blood 6.7 g/dL (6.4-8.2)
[2020-01-28 04:29] LABS: Anion Gap Unable to Calculate mmol/L (6-16); CO2, Blood >45 mmol/L (21-32)
[2020-01-28 16:04] LABS: Adenovirus Not Detected (NOT DETECT); Coronavirus 229E Not Detected (NOT DETECT); Coronavirus HKU1 Not Detected (NOT DETECT); Coronavirus NL63 Not Detected (NOT DETECT); Coronavirus OC43 Not Detected (NOT DETECT); Human Metapneumovirus Not Detected (NOT DETECT); Human Rhinovirus/Enterovirus Not Detected (NOT DETECT); Influenza A/2009-H1 Not Detected (NOT DETECT); Influenza A/H1 Not Detected (NOT DETECT); Influenza A/H3 Not Detected (NOT DETECT); Influenza B Not Detected (NOT DETECT); Parainfluenza Virus 1 Not Detected (NOT DETECT); Parainfluenza Virus 2 Not Detected (NOT DETECT); Parainfluenza Virus 3 Not Detected (NOT DETECT); Parainfluenza Virus 4 Not Detected (NOT DETECT); Respiratory Syncytial Virus Not Detected (NOT DETECT); SARS-Cov-2 (COVID-19), BioFire Not Detected (NOT DETECT)
[2020-01-28 16:05] LABS: Bordetella pertussis Not Detected (NOT DETECT); Chlamydophila pneumoniae Not Detected (NOT DETECT); Mycoplasma pneumoniae Not Detected (NOT DETECT)
[2020-02-02] MEDS ORDERED: Acetaminophen650 M1 PR (09:16)
[2020-02-02] MEDS ORDERED: ALBU2.5V5 INH (09:17)
[2020-02-02] MEDS ORDERED: ATROPINE SULFATE2 M1 SL (09:18)
[2020-02-02] MEDS ORDERED: BENZ100A PO (09:18)
[2020-02-02] MEDS ORDERED: TUMS500 MG PO (09:19)
[2020-02-02] MEDS ORDERED: Ativan1 MG PO (09:19)
[2020-02-02] MEDS ORDERED: Guaifenesin Wit10 ML PO (09:19)
[2020-02-02] MEDS ORDERED: NICO21TP TOP (09:20)
[2020-02-02] MEDS ORDERED: MORP20L SL (09:20)
[2020-02-02] MEDS ORDERED: TRANSDERM-SCOP1 EAC2 TOP (09:21)
[2020-02-02] MEDS ORDERED: ACET325 PO (09:25)
[2020-02-02] MEDS ORDERED: ONDA4ODT MM (09:28)
== END 2020-02-02 11:41 | disposition hospice, home (50) | DRG 871 ==
LOC: ER 07:00 → ICUW 12:03 → ICUE 12:03 → MEDS 01-28 20:14
PROVIDERS: Emergency Medicine; Internal Medicine Pulmonary Disease; Nurse Practitioner Acute Care; ADMIT Family Medicine
PROC: 5A09357 Assistance with Respiratory Ventilation, Less than 24 Consecutive Hours, Continuous Positive Airway Pressure (ICD-10-PCS; principal; 2020-01-27)
DX: A41.9 Sepsis, unspecified organism (principal); J18.9 Pneumonia, unspecified organism; J96.21 Acute and chronic respiratory failure with hypoxia; J96.22 Acute and chronic respiratory failure with hypercapnia; J44.0 Chronic obstructive pulmonary disease with (acute) lower respiratory infection; J44.1 Chronic obstructive pulmonary disease with (acute) exacerbation; E44.0 Moderate protein-calorie malnutrition; E87.2 Acidosis; G93.1 Anoxic brain damage, not elsewhere classified; R64 Cachexia; Z20.828 Contact with and (suspected) exposure to other viral communicable diseases; Z51.5 Encounter for palliative care; Z66 Do not resuscitate; Z23 Encounter for immunization; R65.20 Severe sepsis without septic shock; N18.30 Chronic kidney disease, stage 3 unspecified; E11.22 Type 2 diabetes mellitus with diabetic chronic kidney disease; I12.9 Hypertensive chronic kidney disease with stage 1 through stage 4 chronic kidney disease, or unspecified chronic kidney disease; G47.33 Obstructive sleep apnea (adult) (pediatric); I48.0 Paroxysmal atrial fibrillation; I25.10 Atherosclerotic heart disease of native coronary artery without angina pectoris; S82.892A Other fracture of left lower leg, initial encounter for closed fracture; R91.1 Solitary pulmonary nodule; D63.1 Anemia in chronic kidney disease; D50.9 Iron deficiency anemia, unspecified; E78.5 Hyperlipidemia, unspecified; F17.210 Nicotine dependence, cigarettes, uncomplicated; Z99.81 Dependence on supplemental oxygen; I25.2 Old myocardial infarction; Z79.84 Long term (current) use of oral hypoglycemic drugs; Z68.20 Body mass index [BMI] 20.0-20.9, adult
CPT/HCPCS: 0202U; 36415; 36600; 71045; 71250; 80053; 82803; 82947; 83605; 83880; 84145; 84484; 85025; 86003; 87040; 87449; 93005; 93010; 94640; 94644; 94660; 94760; 96365; 96367; 96375; 99285-25; A9270; A9270-GY; G0008; J0456; J0696; J1644; J2543; J2930; J3370; J7050; Q2038; U0004

== ENCOUNTER 2020-02-25 18:25 | Emergency (ER) | payer BC, MEDICARE ==
[~2020-02-25] VITALS: Ht 180.3 cm; Wt 59.0 kg
[~2020-02-25 18:25] MED LIST changes: +ACET325 PO; +ALBU2.5V5 INH; +ATROPINE SULFATE2 M1 SL; +Acetaminophen650 M1 PR; +Ativan1 MG PO; +BENZ100A PO; +ERYT1OIN BOTHEYES; +Guaifenesin Wit10 ML PO; +METF500C PO; +METO25 PO; +MORP20L SL; +MOXIFLOXACIN BOTHEYES; +NICO21TP TOP; +ONDA4ODT MM; +TIOT18 INH; +TRANSDERM-SCOP1 EAC2 TOP; +TUMS500 MG PO; +Vitamin D2000 UNIT PO
== END 2020-02-25 20:17 | disposition home or self-care (01) ==
LOC: ER 18:25
DX: Z00.00 Encounter for general adult medical examination without abnormal findings (principal); R25.1 Tremor, unspecified; I12.9 Hypertensive chronic kidney disease with stage 1 through stage 4 chronic kidney disease, or unspecified chronic kidney disease; E11.22 Type 2 diabetes mellitus with diabetic chronic kidney disease; N18.30 Chronic kidney disease, stage 3 unspecified; J44.9 Chronic obstructive pulmonary disease, unspecified; I25.10 Atherosclerotic heart disease of native coronary artery without angina pectoris; E78.5 Hyperlipidemia, unspecified; I48.91 Unspecified atrial fibrillation; Z88.5 Allergy status to narcotic agent; Z79.899 Other long term (current) drug therapy; Z79.51 Long term (current) use of inhaled steroids; Z95.5 Presence of coronary angioplasty implant and graft
CPT/HCPCS: 99283